=== PATIENT | male | born 1965 | race Asian ===

== ENCOUNTER 2016-12-15 19:24 | Inpatient (IN) | payer OTHER ==
[~2016-12-15] VITALS: Ht 162.6 cm; Wt 78.8 kg
[~2016-12-15 19:24] MED LIST: AMLO10TA4 PO; ASPI-1061 PO; GLIP5TAB3 PO
[2016-12-15] MEDS ORDERED: SODI650T PO (20:11)
[2016-12-15] MEDS ORDERED: HYDR25 PO (20:11)
[2016-12-15] MEDS ORDERED: DILT180C52 PO (20:11)
[2016-12-15] MEDS ORDERED: FURO20 PO (20:11)
[2016-12-15] MEDS ORDERED: LINA5TAB PO (20:11)
[2016-12-15] MEDS ORDERED: DILT180C3 PO (20:11)
[2016-12-15] MEDS ORDERED: PRAV20TA4 PO (20:13)
[2016-12-15] MEDS ORDERED: LOSA50TA37 PO (20:13)
[2016-12-15 20:16] LABS: GLUCOSE,POINT OF CARE 209 MG/DL (70-110)
[2016-12-15 20:53] LABS: ANION GAP 12 mmol/L (8-16); BASOPHILS % (AUTO) 1.7 % (0.0-2.0); CALCIUM, TOTAL 8.3 mg/dL (8.8-10.5); CARBON DIOXIDE 22 mmol/L (22-29); CHLORIDE 95 mmol/L (98-107); CREATININE 3.39 mg/dL (0.60-1.30); EOSINOPHILS % (AUTO) 0.1 % (1.0-6.0); GLOMERULAR FILTR. RATE CALC 19 mL/min (>60); HEMATOCRIT 32.8 % (41-53); HEMOGLOBIN 10.2 g/dL (13.5-17.5); LYMPHOCYTES # (AUTO) 0.9 K/uL (1.0-4.8); LYMPHOCYTES % (AUTO) 3.4 % (22.0-44.0); MEAN CORPUSCULAR HEMOGLOBIN 20.4 pg (26.0-34.0); MEAN CORPUSCULAR HGB CONC 31.1 G/dL (31.0-37.0); MEAN CORPUSCULAR VOLUME 66 fL (80-100); MONOCYTES # (AUTO) 1.6 K/uL (0.1-1.0); MONOCYTES % (AUTO) 6.3 % (2.0-9.0); NEUTROPHILS # (AUTO) 22.3 K/uL (1.8-7.7); NEUTROPHILS % (AUTO) 88.5 % (40.0-70.0); PLATELET COUNT (AUTO) 282 K/uL (150-450); RED CELL DISTRIBUTION WIDTH 15.3 % (11.5-14.5); SODIUM SERUM 129 mmol/L (136-145); UREA NITROGEN, BLOOD 64 mg/dL (7-18); WHITE BLOOD COUNT (AUTO) 25.2 K/uL (4.5-11.0)
[2016-12-15 20:59] LABS: ALANINE AMINOTRANSFERASE 32 U/L (12-78); ALBUMIN 2.1 g/dL (3.4-5.0); ASPARTATE AMINOTRANSFERASE 26 U/L (15-37); BILIRUBIN,TOTAL 0.4 mg/dL (0.1-1.0); CREATINE KINASE, TOTAL 48 U/L (39-308); TOTAL PROTEIN, SERUM 8.3 g/dL (6.4-8.2)
[2016-12-15 21:14] LABS: RBC MORPHOLOGY COMMENT ABNORMAL RBC MORPH
[2016-12-15] MEDS ORDERED: MORPHINE SULFATE 4 MG/ML SYRINGE IVP ONE (21:30)
[2016-12-15 21:40] LABS: INR 1.1 (0.9-1.1); PROTHROMBIN TIME 11.6 SEC (9.4-11.6)
[2016-12-15] MEDS ORDERED: SODIUM CHLORIDE 0.9% 1,000 ML IV ONE (22:15)
[2016-12-15] MEDS ORDERED: *CLINICAL-CEFTAROLINE DOSING CLINICAL ONE (22:15)
[2016-12-15 22:16] LABS: B-TYPE NATRIURETIC PEPTIDE 60 pg/mL (0-100)
[2016-12-15] MEDS ORDERED: CEFTAROLINE FOSAMIL 300 MG in DEXTROSE 5%-WATER 150 ML IV ONE (22:30)
[2016-12-15] MEDS ORDERED: ACETAMINOPHEN 325 MG TABLET PO PRN (23:30)
[2016-12-15] MEDS ORDERED: ONDANSETRON HCL 4 MG/2 ML VIAL IVP PRN (23:30)
[2016-12-15] MEDS ORDERED: 0.9% SODIUM CHLORIDE 10 ML SYRINGE IVP PRN (23:30)
[2016-12-16 02:07] LABS: APPEARANCE,URINE CLEAR (CLEAR); GLUCOSE, URINE (UA) 100 mg/dL (NEGATIVE); KETONES,URINE NEGATIVE (NEGATIVE); LEUKOCYTE ESTERASE ,URINE SMALL (NEGATIVE); OCCULT BLOOD,URINE NEGATIVE (NEGATIVE); PROTEIN,URINE SEE CONFIRM (NEGATIVE)
[2016-12-16 02:10] LABS: ADD UA MICROSCOPIC YES
[2016-12-16 02:55] LABS: RBC,URINE 0-2 /HPF (0-2); SQUAMOUS EPITHELIAL CELL,UR Rare /LPF (None Seen); SULFOSALICYLIC ACID,URINE 2+ (Negative)
[2016-12-16 06:27] LABS: GLUCOSE,POINT OF CARE 103 MG/DL (70-110)
[2016-12-16] MEDS ORDERED: *CLINICAL-CEFTAROLINE DOSING CLINICAL ONE (08:15)
[2016-12-16] MEDS ORDERED: ONDANSETRON HCL 4 MG/2 ML VIAL IVP PRN (08:15)
[2016-12-16] MEDS ORDERED: MAGNESIUM HYDROXIDE SUSPENSION 30 ML UDCUP PO PRN (08:15)
[2016-12-16] MEDS ORDERED: 0.9% SODIUM CHLORIDE 10 ML SYRINGE IVP PRN (08:15)
[2016-12-16] MEDS ORDERED: DILTIAZEM HCL CD 180 MG ER CAPSULE PO SCH (09:00)
[2016-12-16] MEDS ORDERED: SODIUM BICARBONATE 650 MG TABLET PO SCH (09:00)
[2016-12-16] MEDS: LOSARTAN POTASSIUM 50 MG TABLET PO SCH (09:29)
[2016-12-16] MEDS: DILTIAZEM HCL CD 180 MG ER CAPSULE PO SCH (09:29)
[2016-12-16] MEDS: AmLODIPine BESYLATE 10 MG TABLET PO SCH (09:29)
[2016-12-16] MEDS: PRAVASTATIN SODIUM 20 MG TABLET PO SCH (09:29)
[2016-12-16] MEDS: HydrALAZINE HCL 25 MG TABLET PO SCH ×2 (09:29→23:28)
[2016-12-16] MEDS: FUROSEMIDE 20 MG TABLET PO SCH (09:29)
[2016-12-16] MEDS: LinaGLIPtin 5 MG TABLET PO SCH (09:29)
[2016-12-16] MEDS: DOCUSATE SODIUM 100 MG CAPSULE PO SCH ×2 (09:29→22:23)
[2016-12-16] MEDS: ASPIRIN 81 MG EC TABLET PO SCH (09:29)
[2016-12-16] MEDS: PANTOPRAZOLE SODIUM 40 MG/VIAL IVP SCH (09:30)
[2016-12-16] MEDS ORDERED: CEFTAROLINE FOSAMIL 300 MG in DEXTROSE 5%-WATER 150 ML IV ONE (10:00)
[2016-12-16] MEDS ORDERED: ONDANSETRON HCL 4 MG/2 ML VIAL IVP ONE (12:00)
[2016-12-16] MEDS ORDERED: SUCCINYLCHOLINE CHLORIDE 20 MG/ML 10 ML VIAL IVP ONE (12:00)
[2016-12-16] MEDS ORDERED: PROPOFOL 1% 20 ML VIAL IVP ONE (12:00)
[2016-12-16] MEDS ORDERED: EPHEDrine SULFATE 50 MG/ML VIAL IM ONE (12:00)
[2016-12-16] MEDS ORDERED: MIDAZOLAM HCL 2 MG/2 ML VIAL IVP ONE (12:00)
[2016-12-16] MEDS ORDERED: FentaNYL CITRATE-PF 100 MCG/2 ML VIAL IVP ONE (12:00)
[2016-12-16] MEDS ORDERED: LIDOCAINE HCL/PF 2% 5 ML VIAL INJ ONE (12:00)
[2016-12-16] MEDS ORDERED: SODIUM CHLORIDE 0.9% 1,000 ML IV ONE ×2 (12:00→12:23)
[2016-12-16 12:19] VITALS: BP 126/67
[2016-12-16] MEDS ORDERED: HYDROGEN PEROXIDE 473 ML SOLUTION ONE (12:58)
[2016-12-16] MEDS ORDERED: HYDROmorphone 2 MG/ML SYRINGE IVP PRN (14:00)
[2016-12-16] MEDS ORDERED: FentaNYL CITRATE-PF 100 MCG/2 ML VIAL IVP PRN (14:00)
[2016-12-16] MEDS ORDERED: MEPERIDINE-PF 25 MG/ML SYRINGE IVP PRN (14:00)
[2016-12-16 15:36] VITALS: BP 114/59
[2016-12-16 16:17] VITALS: BP 114/59
[2016-12-16 20:17] VITALS: BP 120/61
[2016-12-16] MEDS: ACETAMINOPHEN 325 MG TABLET PO PRN (22:25)
[2016-12-16] MEDS: CEFTAROLINE FOSAMIL 300 MG in DEXTROSE 5%-WATER 150 ML IV SCH (23:21)
[2016-12-16 23:57] VITALS: BP 112/60
[2016-12-17 04:43] VITALS: BP 135/66
[2016-12-17 07:16] VITALS: BP 126/61
[2016-12-17 07:45] LABS: BASOPHILS # (AUTO) 0.03 K/uL (0.00-0.20); BASOPHILS % (AUTO) 0.2 % (0.0-2.0); EOSINOPHILS % (AUTO) 0.56 % (1.0-6.0); HEMATOCRIT 25.1 % (41-53); HEMOGLOBIN 8.2 g/dL (13.5-17.5); LYMPHOCYTES # (AUTO) 0.9 K/uL (1.0-4.8); LYMPHOCYTES % (AUTO) 4.9 % (22.0-44.0); MEAN CORPUSCULAR HGB CONC 32.7 G/dL (31.0-37.0); MEAN CORPUSCULAR VOLUME 64 fL (80-100); MONOCYTES # (AUTO) 1.6 K/uL (0.1-1.0); MONOCYTES % (AUTO) 8.7 % (2.0-9.0); NEUTROPHILS # (AUTO) 15.5 K/uL (1.8-7.7); PLATELET COUNT (AUTO) 258 K/uL (150-450); RED CELL DISTRIBUTION WIDTH 15.3 % (11.5-14.5); WHITE BLOOD COUNT (AUTO) 18.1 K/uL (4.5-11.0)
[2016-12-17 07:51] LABS: CALCIUM, TOTAL 7.5 mg/dL (8.8-10.5); CREATININE 3.3 mg/dL (0.60-1.30); POTASSIUM 5.2 mmol/L (3.5-5.1)
[2016-12-17 07:55] LABS: NEUTROPHILS % (AUTO) 85.6 % (40.0-70.0)
[2016-12-17 07:56] LABS: RBC MORPHOLOGY COMMENT ABNORMAL RBC MORPH
[2016-12-17] MEDS: OXYGEN THERAPY IH SCH ×2 (08:00→20:00)
[2016-12-17] MEDS: DILTIAZEM HCL CD 180 MG ER CAPSULE PO SCH (08:20)
[2016-12-17] MEDS: DOCUSATE SODIUM 100 MG CAPSULE PO SCH ×2 (08:20→20:13)
[2016-12-17] MEDS: ASPIRIN 81 MG EC TABLET PO SCH (08:20)
[2016-12-17] MEDS: PRAVASTATIN SODIUM 20 MG TABLET PO SCH (08:21)
[2016-12-17] MEDS: FUROSEMIDE 20 MG TABLET PO SCH (08:21)
[2016-12-17] MEDS: AmLODIPine BESYLATE 10 MG TABLET PO SCH (08:21)
[2016-12-17] MEDS: PANTOPRAZOLE SODIUM 40 MG/VIAL IVP SCH (08:27)
[2016-12-17] MEDS ORDERED: SODIUM CL IRRIG SOLN BOTTLE 250 ML IRRIG ONE (09:25)
[2016-12-17] MEDS: HydrALAZINE HCL 25 MG TABLET PO SCH ×2 (09:40→20:13)
[2016-12-17] MEDS: LinaGLIPtin 5 MG TABLET PO SCH (09:40)
[2016-12-17] MEDS: LOSARTAN POTASSIUM 50 MG TABLET PO SCH (09:40)
[2016-12-17] MEDS: ACETAMINOPHEN 325 MG TABLET PO PRN (09:41)
[2016-12-17] MEDS: CEFTAROLINE FOSAMIL 300 MG in DEXTROSE 5%-WATER 150 ML IV SCH ×2 (09:42→21:14)
[2016-12-17] MEDS ORDERED: GLIP10 PO (11:11)
[2016-12-17 11:15] VITALS: BP 121/62
[2016-12-17] MEDS ORDERED: DEXTROSE 50%-WATER 25 GM/50 ML SYRINGE IVP PRN (11:15)
[2016-12-17 11:57] LABS: GLUCOSE COMMENT 1 Received Meds; GLUCOSE,POINT OF CARE 232 MG/DL (70-110)
[2016-12-17] MEDS: INSULIN ASPART 100 UNITS/ML SQ PRN ×3 (12:05→20:54)
[2016-12-17 15:31] VITALS: BP 117/67
[2016-12-17] MEDS: SODIUM CHLORIDE 0.9% 1,000 ML IV SCH (15:47)
[2016-12-17] MEDS: OxyCODONE HCL/ACETAMINOPHEN 5-325 MG TABLET PO PRN ×2 (15:59→20:21)
[2016-12-17 18:36] LABS: GLUCOSE,POINT OF CARE 244 MG/DL (70-110)
[2016-12-17 18:36] LABS: GLUCOSE,POINT OF CARE 208 MG/DL (70-110)
[2016-12-17 19:17] VITALS: BP 125/58
[2016-12-18] VITALS (7 sets, daily range): BP systolic 118–150; BP diastolic 55–77
[2016-12-18] MEDS: SODIUM CHLORIDE 0.9% 1,000 ML IV SCH (05:51)
[2016-12-18] MEDS: INSULIN ASPART 100 UNITS/ML SQ PRN ×4 (06:35→20:31)
[2016-12-18 07:10] LABS: BASOPHILS % (AUTO) 0.1 % (0.0-2.0); EOSINOPHILS % (AUTO) 1.2 % (1.0-6.0); HEMATOCRIT 26.2 % (41-53); HEMOGLOBIN 8.3 g/dL (13.5-17.5); LYMPHOCYTES % (AUTO) 6.3 % (22.0-44.0); MEAN CORPUSCULAR HEMOGLOBIN 20.5 pg (26.0-34.0); MEAN CORPUSCULAR HGB CONC 31.4 G/dL (31.0-37.0); MEAN CORPUSCULAR VOLUME 65 fL (80-100); MONOCYTES # (AUTO) 1.3 K/uL (0.1-1.0); MONOCYTES % (AUTO) 8.2 % (2.0-9.0); NEUTROPHILS # (AUTO) 13.2 K/uL (1.8-7.7); NEUTROPHILS % (AUTO) 84.2 % (40.0-70.0); PLATELET COUNT (AUTO) 296 K/uL (150-450); RED BLOOD CELL COUNT(AUTO) 4.02 MIL/uL (4.50-5.90); RED CELL DISTRIBUTION WIDTH 14.8 % (11.5-14.5); WHITE BLOOD COUNT (AUTO) 15.7 K/uL (4.5-11.0)
[2016-12-18 07:31] LABS: CALCIUM, TOTAL 7.4 mg/dL (8.8-10.5); MAGNESIUM 2.4 mg/dL (1.80-2.40); PHOSPHORUS 4.4 mg/dL (2.5-4.9); POTASSIUM 5.7 mmol/L (3.5-5.1)
[2016-12-18 07:32] LABS: GLUCOSE,POINT OF CARE 148 MG/DL (70-110)
[2016-12-18] MEDS: PRAVASTATIN SODIUM 20 MG TABLET PO SCH (08:14)
[2016-12-18] MEDS: DILTIAZEM HCL CD 180 MG ER CAPSULE PO SCH (08:14)
[2016-12-18] MEDS: LinaGLIPtin 5 MG TABLET PO SCH (08:14)
[2016-12-18] MEDS: PANTOPRAZOLE SODIUM 40 MG/VIAL IVP SCH (08:14)
[2016-12-18] MEDS: ASPIRIN 81 MG EC TABLET PO SCH (08:15)
[2016-12-18] MEDS: ACETAMINOPHEN 325 MG TABLET PO PRN (08:15)
[2016-12-18] MEDS: DOCUSATE SODIUM 100 MG CAPSULE PO SCH ×2 (08:15→21:00)
[2016-12-18] MEDS: OXYGEN THERAPY IH SCH ×2 (08:15→20:00)
[2016-12-18] MEDS ORDERED: SODIUM POLYSTYRENE SULFONATE 15 GM/60 ML SUSPENSION BOTTLE PO ONE (08:30)
[2016-12-18] MEDS ORDERED: VANCOMYCIN HCL 1.25 GM in DEXTROSE 5%-WATER 250 ML IV ONE (09:00)
[2016-12-18] MEDS: HydrALAZINE HCL 25 MG TABLET PO SCH ×2 (09:00→20:28)
[2016-12-18] MEDS: OxyCODONE HCL/ACETAMINOPHEN 5-325 MG TABLET PO PRN ×2 (09:26→20:28)
[2016-12-18] MEDS: ALBUMIN HUMAN 25%-25GM/100ML 100 ML IV SCH ×2 (11:50→17:07)
[2016-12-18 12:12] LABS: GLUCOSE COMMENT 1 Received Meds; GLUCOSE,POINT OF CARE 203 MG/DL (70-110)
[2016-12-18 19:56] LABS: GLUCOSE COMMENT 1 Received Meds; GLUCOSE,POINT OF CARE 159 MG/DL (70-110)
[2016-12-18 19:57] LABS: GLUCOSE COMMENT 1 Received Meds; GLUCOSE,POINT OF CARE 283 MG/DL (70-110)
[2016-12-18 19:57] LABS: GLUCOSE COMMENT 1 Received Meds; GLUCOSE,POINT OF CARE 176 MG/DL (70-110)
[2016-12-19] MEDS: SODIUM CHLORIDE 0.9% 1,000 ML IV SCH ×2 (00:06→08:19)
[2016-12-19] MEDS: ALBUMIN HUMAN 25%-25GM/100ML 100 ML IV SCH ×5 (00:06→23:32)
[2016-12-19 04:41] VITALS: BP 147/73
[2016-12-19 07:23] LABS: BASOPHILS % (AUTO) 0.4 % (0.0-2.0); EOSINOPHILS % (AUTO) 1.1 % (1.0-6.0); HEMATOCRIT 26.3 % (41-53); HEMOGLOBIN 8.2 g/dL (13.5-17.5); LYMPHOCYTES # (AUTO) 1.1 K/uL (1.0-4.8); LYMPHOCYTES % (AUTO) 8.5 % (22.0-44.0); MEAN CORPUSCULAR HEMOGLOBIN 20.2 pg (26.0-34.0); MEAN CORPUSCULAR VOLUME 65 fL (80-100); MONOCYTES # (AUTO) 1.1 K/uL (0.1-1.0); MONOCYTES % (AUTO) 7.9 % (2.0-9.0); NEUTROPHILS % (AUTO) 82.1 % (40.0-70.0); PLATELET COUNT (AUTO) 279 K/uL (150-450); RED BLOOD CELL COUNT(AUTO) 4.05 MIL/uL (4.50-5.90); RED CELL DISTRIBUTION WIDTH 15.3 % (11.5-14.5); WHITE BLOOD COUNT (AUTO) 13.4 K/uL (4.5-11.0)
[2016-12-19 07:48] VITALS: BP 148/80
[2016-12-19 07:50] LABS: CALCIUM, TOTAL 8.1 mg/dL (8.8-10.5); CREATININE 2.54 mg/dL (0.60-1.30); MAGNESIUM 2.3 mg/dL (1.80-2.40); PHOSPHORUS 3.9 mg/dL (2.5-4.9); POTASSIUM 5.5 mmol/L (3.5-5.1)
[2016-12-19] MEDS: ASPIRIN 81 MG EC TABLET PO SCH (08:12)
[2016-12-19] MEDS ORDERED: SODIUM POLYSTYRENE SULFONATE 15 GM/60 ML SUSPENSION BOTTLE PO ONE (08:15)
[2016-12-19] MEDS: DOCUSATE SODIUM 100 MG CAPSULE PO SCH ×2 (08:18→20:54)
[2016-12-19] MEDS: PANTOPRAZOLE SODIUM 40 MG/VIAL IVP SCH (08:18)
[2016-12-19] MEDS: LinaGLIPtin 5 MG TABLET PO SCH (08:18)
[2016-12-19] MEDS: PRAVASTATIN SODIUM 20 MG TABLET PO SCH (08:18)
[2016-12-19] MEDS: DILTIAZEM HCL CD 180 MG ER CAPSULE PO SCH (08:18)
[2016-12-19] MEDS: OxyCODONE HCL/ACETAMINOPHEN 5-325 MG TABLET PO PRN ×3 (08:18→21:54)
[2016-12-19] MEDS: HydrALAZINE HCL 25 MG TABLET PO SCH ×2 (08:18→20:54)
[2016-12-19] MEDS: OXYGEN THERAPY IH SCH ×2 (08:19→17:17)
[2016-12-19] MEDS ORDERED: *CLINICAL-CEFTAROLINE DOSING CLINICAL ONE (11:15)
[2016-12-19 11:19] VITALS: BP 150/76
[2016-12-19 11:43] LABS: GLUCOSE COMMENT 1 Received Meds; GLUCOSE,POINT OF CARE 146 MG/DL (70-110)
[2016-12-19] MEDS ORDERED: VANCOMYCIN HCL 1 GM/D5% WATER 200 ML IV ONE (12:00)
[2016-12-19] MEDS: INSULIN ASPART 100 UNITS/ML SQ PRN ×3 (12:14→20:59)
[2016-12-19 16:01] VITALS: BP 152/75
[2016-12-19] MEDS: ACETAMINOPHEN 325 MG TABLET PO PRN (17:17)
[2016-12-19 19:48] VITALS: BP 148/78
[2016-12-19 23:12] VITALS: BP 153/73
[2016-12-20 04:16] VITALS: BP 128/67
[2016-12-20] MEDS: ALBUMIN HUMAN 25%-25GM/100ML 100 ML IV SCH ×3 (05:57→17:51)
[2016-12-20 06:19] LABS: BASOPHILS # (AUTO) 0.06 K/uL (0.00-0.20); BASOPHILS % (AUTO) 0.4 % (0.0-2.0); EOSINOPHILS % (AUTO) 0.75 % (1.0-6.0); HEMATOCRIT 22.4 % (41-53); HEMOGLOBIN 7.3 g/dL (13.5-17.5); LYMPHOCYTES # (AUTO) 1.3 K/uL (1.0-4.8); LYMPHOCYTES % (AUTO) 9.4 % (22.0-44.0); MEAN CORPUSCULAR HEMOGLOBIN 20.9 pg (26.0-34.0); MEAN CORPUSCULAR HGB CONC 32.8 G/dL (31.0-37.0); MEAN CORPUSCULAR VOLUME 64 fL (80-100); MONOCYTES # (AUTO) 0.9 K/uL (0.1-1.0); MONOCYTES % (AUTO) 6.5 % (2.0-9.0); NEUTROPHILS # (AUTO) 11.4 K/uL (1.8-7.7); NEUTROPHILS % (AUTO) 82.9 % (40.0-70.0); PLATELET COUNT (AUTO) 237 K/uL (150-450); RED BLOOD CELL COUNT(AUTO) 3.51 MIL/uL (4.50-5.90); RED CELL DISTRIBUTION WIDTH 15.5 % (11.5-14.5); WHITE BLOOD COUNT (AUTO) 13.8 K/uL (4.5-11.0)
[2016-12-20 07:05] LABS: ALBUMIN 2.9 g/dL (3.4-5.0); BILIRUBIN,TOTAL 0.3 mg/dL (0.1-1.0); CALCIUM, TOTAL 8.1 mg/dL (8.8-10.5); CREATININE 2.37 mg/dL (0.60-1.30); MAGNESIUM 2.2 mg/dL (1.80-2.40); PHOSPHORUS 3.4 mg/dL (2.5-4.9); POTASSIUM 5.1 mmol/L (3.5-5.1); TOTAL PROTEIN, SERUM 7.2 g/dL (6.4-8.2)
[2016-12-20 07:09] LABS: RBC MORPHOLOGY COMMENT ABNORMAL RBC MORPH
[2016-12-20 07:40] VITALS: BP 149/78
[2016-12-20] MEDS: PRAVASTATIN SODIUM 20 MG TABLET PO SCH (08:13)
[2016-12-20] MEDS: LinaGLIPtin 5 MG TABLET PO SCH (08:13)
[2016-12-20] MEDS: DILTIAZEM HCL CD 180 MG ER CAPSULE PO SCH (08:13)
[2016-12-20] MEDS: VANCOMYCIN HCL 1 GM/D5% WATER 200 ML IV SCH (08:13)
[2016-12-20] MEDS: PANTOPRAZOLE SODIUM 40 MG/VIAL IVP SCH (08:13)
[2016-12-20] MEDS: EPOETIN ALFA 10,000 UNITS/ML VIAL SQ SCH (08:13)
[2016-12-20] MEDS: HydrALAZINE HCL 25 MG TABLET PO SCH ×2 (08:13→20:53)
[2016-12-20] MEDS: DOCUSATE SODIUM 100 MG CAPSULE PO SCH ×2 (08:14→20:53)
[2016-12-20] MEDS: ASPIRIN 81 MG EC TABLET PO SCH (08:14)
[2016-12-20] MEDS: OxyCODONE HCL/ACETAMINOPHEN 5-325 MG TABLET PO PRN (10:44)
[2016-12-20] MEDS: SODIUM CHLORIDE 0.9% 1,000 ML IV SCH (10:49)
[2016-12-20] MEDS: INSULIN ASPART 100 UNITS/ML SQ PRN ×3 (11:36→21:01)
[2016-12-20 11:41] VITALS: BP 160/78
[2016-12-20] MEDS ORDERED: SODIUM CL IRRIG SOLN BOTTLE 250 ML IRRIG ONE (11:47)
[2016-12-20 15:34] VITALS: BP 163/79
[2016-12-20] MEDS: OXYGEN THERAPY IH SCH ×2 (17:51→20:54)
[2016-12-20 18:07] LABS: GLUCOSE COMMENT 1 Received Meds; GLUCOSE,POINT OF CARE 160 MG/DL (70-110)
[2016-12-20 18:08] LABS: GLUCOSE COMMENT 1 Received Meds; GLUCOSE,POINT OF CARE 209 MG/DL (70-110)
[2016-12-20 18:08] LABS: GLUCOSE COMMENT 1 Received Meds; GLUCOSE,POINT OF CARE 155 MG/DL (70-110)
[2016-12-20 18:08] LABS: GLUCOSE COMMENT 1 Received Meds; GLUCOSE,POINT OF CARE 213 MG/DL (70-110)
[2016-12-20 18:12] LABS: GLUCOSE,POINT OF CARE 108 MG/DL (70-110)
[2016-12-20 18:12] LABS: GLUCOSE COMMENT 1 Received Meds; GLUCOSE,POINT OF CARE 233 MG/DL (70-110)
[2016-12-20 19:36] VITALS: BP 142/64
[2016-12-20 23:07] LABS: GLUCOSE COMMENT 1 Received Meds; GLUCOSE,POINT OF CARE 161 MG/DL (70-110)
[2016-12-20 23:34] VITALS: BP 152/71
[2016-12-21] VITALS (17 sets, daily range): BP systolic 137–160; BP diastolic 66–90
[2016-12-21] MEDS: ALBUMIN HUMAN 25%-25GM/100ML 100 ML IV SCH ×2 (00:17→06:01)
[2016-12-21] MEDS: SODIUM CHLORIDE 0.9% 1,000 ML IV SCH ×2 (06:01→10:10)
[2016-12-21] MEDS: INSULIN ASPART 100 UNITS/ML SQ PRN ×4 (06:07→21:16)
[2016-12-21 06:57] LABS: BASOPHILS % (AUTO) 0.1 % (0.0-2.0); EOSINOPHILS % (AUTO) 0.4 % (1.0-6.0); HEMATOCRIT 22.9 % (41-53); HEMOGLOBIN 7.2 g/dL (13.5-17.5); LYMPHOCYTES # (AUTO) 1.2 K/uL (1.0-4.8); LYMPHOCYTES % (AUTO) 6.9 % (22.0-44.0); MEAN CORPUSCULAR HGB CONC 31.7 G/dL (31.0-37.0); MEAN CORPUSCULAR VOLUME 66 fL (80-100); MONOCYTES # (AUTO) 0.9 K/uL (0.1-1.0); MONOCYTES % (AUTO) 5.4 % (2.0-9.0); NEUTROPHILS # (AUTO) 14.8 K/uL (1.8-7.7); PLATELET COUNT (AUTO) 227 K/uL (150-450); RED BLOOD CELL COUNT(AUTO) 3.45 MIL/uL (4.50-5.90); RED CELL DISTRIBUTION WIDTH 15.2 % (11.5-14.5)
[2016-12-21 07:02] LABS: NEUTROPHILS % (AUTO) 87.2 % (40.0-70.0)
[2016-12-21 07:21] LABS: CALCIUM, TOTAL 7.9 mg/dL (8.8-10.5); CREATININE 2.99 mg/dL (0.60-1.30); MAGNESIUM 2.3 mg/dL (1.80-2.40); PHOSPHORUS 3.3 mg/dL (2.5-4.9); POTASSIUM 5.5 mmol/L (3.5-5.1)
[2016-12-21] MEDS ORDERED: ALBUTEROL SULFATE 2.5 MG/0.5 ML NEB SOLUTION NEB PRN (09:00)
[2016-12-21] MEDS ORDERED: IPRATROPIUM BROMIDE 0.5 MG/2.5 ML NEB SOLUTION NEB PRN (09:00)
[2016-12-21 09:25] LABS: ABG A-A DIFF O2 165.3 mmHg (10-20.0); ABG BASE EXCESS -9.1 mmol/L (-2.0-3.0); ABG HCO3 17.5 mmol/L (22.0-26.0); ABG OXYHEMOGLOBIN 83.1 % (94.0-100.0); ABG PCO2 30 mmHg (35-45); ABG PH 7.357 (7.35-7.450); TEMPERATURE, FAHRENHEIT, BG 98.6 FAHREN (96.0-98.6)
[2016-12-21 09:26] LABS: ALLEN TEST, BLOOD GAS POSITIVE
[2016-12-21] MEDS: OXYGEN THERAPY IH SCH ×2 (10:09→20:29)
[2016-12-21] MEDS: PRAVASTATIN SODIUM 20 MG TABLET PO SCH (10:10)
[2016-12-21] MEDS: LinaGLIPtin 5 MG TABLET PO SCH (10:10)
[2016-12-21] MEDS: DOCUSATE SODIUM 100 MG CAPSULE PO SCH ×2 (10:10→20:29)
[2016-12-21] MEDS: DILTIAZEM HCL CD 180 MG ER CAPSULE PO SCH (10:10)
[2016-12-21] MEDS: PANTOPRAZOLE SODIUM 40 MG/VIAL IVP SCH (10:10)
[2016-12-21] MEDS: HydrALAZINE HCL 25 MG TABLET PO SCH ×2 (10:10→20:29)
[2016-12-21] MEDS: ASPIRIN 81 MG EC TABLET PO SCH (10:10)
[2016-12-21] MEDS: VANCOMYCIN HCL 1 GM/D5% WATER 200 ML IV SCH (10:10)
[2016-12-21 12:25] LABS: RBC MORPHOLOGY COMMENT ABNORMAL RBC MORPH
[2016-12-21] MEDS ORDERED: SODIUM CHLORIDE 0.9% 500 ML IV ONE (17:04)
[2016-12-21] MEDS ORDERED: SODIUM POLYSTYRENE SULFONATE 15 GM/60 ML SUSPENSION BOTTLE PO ONE (22:30)
[2016-12-22] VITALS (7 sets, daily range): BP systolic 119–162; BP diastolic 59–86
[2016-12-22] MEDS: ACETAMINOPHEN 325 MG TABLET PO PRN ×2 (04:41→08:56)
[2016-12-22 05:42] LABS: GLUCOSE COMMENT 1 Received Meds; GLUCOSE,POINT OF CARE 178 MG/DL (70-110)
[2016-12-22] MEDS: INSULIN ASPART 100 UNITS/ML SQ PRN ×4 (05:42→21:36)
[2016-12-22 07:21] LABS: BASOPHILS # (AUTO) 0.02 K/uL (0.00-0.20); BASOPHILS % (AUTO) 0.1 % (0.0-2.0); EOSINOPHILS # (AUTO) 0.09 K/uL (0.00-0.70); EOSINOPHILS % (AUTO) 0.57 % (1.0-6.0); HEMATOCRIT 26.7 % (41-53); HEMOGLOBIN 8.8 g/dL (13.5-17.5); LYMPHOCYTES # (AUTO) 0.9 K/uL (1.0-4.8); LYMPHOCYTES % (AUTO) 5.5 % (22.0-44.0); MEAN CORPUSCULAR HEMOGLOBIN 22.6 pg (26.0-34.0); MEAN CORPUSCULAR HGB CONC 33.1 G/dL (31.0-37.0); MEAN CORPUSCULAR VOLUME 68 fL (80-100); MONOCYTES # (AUTO) 0.9 K/uL (0.1-1.0); MONOCYTES % (AUTO) 5.5 % (2.0-9.0); NEUTROPHILS # (AUTO) 14.4 K/uL (1.8-7.7); PLATELET COUNT (AUTO) 239 K/uL (150-450); RED BLOOD CELL COUNT(AUTO) 3.91 MIL/uL (4.50-5.90); RED CELL DISTRIBUTION WIDTH 21.3 % (11.5-14.5); WHITE BLOOD COUNT (AUTO) 16.3 K/uL (4.5-11.0)
[2016-12-22 07:52] LABS: NEUTROPHILS % (AUTO) 88.3 % (40.0-70.0)
[2016-12-22 07:53] LABS: RBC MORPHOLOGY COMMENT ABNORMAL RBC MORPH
[2016-12-22 08:11] LABS: CREATININE 2.92 mg/dL (0.60-1.30); MAGNESIUM 2.3 mg/dL (1.80-2.40); PHOSPHORUS 3.2 mg/dL (2.5-4.9); POTASSIUM 4.9 mmol/L (3.5-5.1)
[2016-12-22] MEDS: DOCUSATE SODIUM 100 MG CAPSULE PO SCH ×2 (08:56→21:00)
[2016-12-22] MEDS: ASPIRIN 81 MG EC TABLET PO SCH (08:56)
[2016-12-22] MEDS: HydrALAZINE HCL 25 MG TABLET PO SCH ×2 (08:56→21:00)
[2016-12-22] MEDS: PANTOPRAZOLE SODIUM 40 MG/VIAL IVP SCH (08:56)
[2016-12-22] MEDS: PRAVASTATIN SODIUM 20 MG TABLET PO SCH (08:56)
[2016-12-22] MEDS: LinaGLIPtin 5 MG TABLET PO SCH (08:56)
[2016-12-22] MEDS: DILTIAZEM HCL CD 180 MG ER CAPSULE PO SCH (08:56)
[2016-12-22] MEDS: VANCOMYCIN HCL 1 GM/D5% WATER 200 ML IV SCH (08:57)
[2016-12-22] MEDS: EPOETIN ALFA 10,000 UNITS/ML VIAL SQ SCH (08:57)
[2016-12-22] MEDS ORDERED: SODIUM CHLORIDE 0.9% 500 ML IV ONE (09:00)
[2016-12-22] MEDS: OXYGEN THERAPY IH SCH ×2 (09:02→21:01)
[2016-12-22] MEDS ORDERED: FUROSEMIDE 40 MG/4 ML VIAL IVP ONE ×2 (12:15→14:45)
[2016-12-22] MEDS: CefTRIAXone 1 GM/DEXTROSE 50 ML IV SCH (16:42)
[2016-12-23 04:19] VITALS: BP 144/74
[2016-12-23] MEDS: INSULIN ASPART 100 UNITS/ML SQ PRN (06:00)
[2016-12-23 07:17] VITALS: BP 172/90
[2016-12-23 07:45] LABS: BASOPHILS % (AUTO) 0.4 % (0.0-2.0); EOSINOPHILS % (AUTO) 0.8 % (1.0-6.0); HEMATOCRIT 31.3 % (41-53); LYMPHOCYTES # (AUTO) 0.9 K/uL (1.0-4.8); LYMPHOCYTES % (AUTO) 6.2 % (22.0-44.0); MEAN CORPUSCULAR HEMOGLOBIN 22.1 pg (26.0-34.0); MEAN CORPUSCULAR HGB CONC 31.8 G/dL (31.0-37.0); MEAN CORPUSCULAR VOLUME 69 fL (80-100); MONOCYTES # (AUTO) 0.8 K/uL (0.1-1.0); MONOCYTES % (AUTO) 5.4 % (2.0-9.0); NEUTROPHILS # (AUTO) 13.2 K/uL (1.8-7.7); PLATELET COUNT (AUTO) 241 K/uL (150-450); RED CELL DISTRIBUTION WIDTH 21.2 % (11.5-14.5); WHITE BLOOD COUNT (AUTO) 15.1 K/uL (4.5-11.0)
[2016-12-23] MEDS ORDERED: VANCOMYCIN HCL 750 MG in DEXTROSE 5%-WATER 150 ML IV SCH (08:00)
[2016-12-23] MEDS: DILTIAZEM HCL CD 180 MG ER CAPSULE PO SCH (08:08)
[2016-12-23] MEDS: PANTOPRAZOLE SODIUM 40 MG/VIAL IVP SCH (08:08)
[2016-12-23] MEDS: DOCUSATE SODIUM 100 MG CAPSULE PO SCH (08:09)
[2016-12-23] MEDS: PRAVASTATIN SODIUM 20 MG TABLET PO SCH (08:09)
[2016-12-23] MEDS: LinaGLIPtin 5 MG TABLET PO SCH (08:09)
[2016-12-23] MEDS: ASPIRIN 81 MG EC TABLET PO SCH (08:09)
[2016-12-23] MEDS: HydrALAZINE HCL 25 MG TABLET PO SCH (08:10)
[2016-12-23] MEDS: OXYGEN THERAPY IH SCH (08:10)
[2016-12-23 08:14] LABS: NEUTROPHILS % (AUTO) 87.2 % (40.0-70.0)
[2016-12-23 08:15] LABS: CALCIUM, TOTAL 8.4 mg/dL (8.8-10.5); CREATININE 2.76 mg/dL (0.60-1.30); MAGNESIUM 2.2 mg/dL (1.80-2.40); PHOSPHORUS 3.7 mg/dL (2.5-4.9); POTASSIUM 4.4 mmol/L (3.5-5.1)
[2016-12-23 11:00] VITALS: BP 174/89
[2016-12-23] MEDS ORDERED: CloNIDine HCL 0.1 MG TABLET PO ONE (12:00)
[2016-12-23 12:03] LABS: GLUCOSE COMMENT 1 Received Meds; GLUCOSE,POINT OF CARE 180 MG/DL (70-110)
[2016-12-23 12:03] LABS: GLUCOSE COMMENT 1 Received Meds; GLUCOSE,POINT OF CARE 178 MG/DL (70-110)
[2016-12-23 12:49] VITALS: BP 157/79
[2016-12-23] MEDS: CefTRIAXone 1 GM/DEXTROSE 50 ML IV SCH (15:15)
[2016-12-24 19:41] LABS: GLUCOSE COMMENT 1 Received Meds; GLUCOSE,POINT OF CARE 201 MG/DL (70-110)
[2016-12-24 19:41] LABS: GLUCOSE COMMENT 1 Received Meds; GLUCOSE,POINT OF CARE 159 MG/DL (70-110)
[2016-12-24 19:47] LABS: GLUCOSE COMMENT 1 Received Meds; GLUCOSE,POINT OF CARE 164 MG/DL (70-110)
[2016-12-24 19:47] LABS: GLUCOSE COMMENT 1 Received Meds; GLUCOSE,POINT OF CARE 147 MG/DL (70-110)
[2016-12-24 19:47] LABS: GLUCOSE,POINT OF CARE 223 MG/DL (70-110)
[2016-12-25 12:28] LABS: ORGANISM ID Not indicated.
[2016-12-27 17:37] LABS: GLUCOSE,POINT OF CARE 180 MG/DL (70-110)
[2016-12-27 17:37] LABS: GLUCOSE,POINT OF CARE 153 MG/DL (70-110)
== END 2016-12-23 15:15 | DRG 710 ==
LOC: EMS 19:28 → AHU 12-16 10:12 → 5S 12-16 18:50
PROVIDERS: ADMIT Internal Medicine; ATTEND Internal Medicine
PROC: 0Q9 Lower Bones, Drainage (ICD-10-PCS; 2016-12-16)
PROC: 0Q9G0ZZ Drainage of Right Tibia, Open Approach (ICD-10-PCS; 2016-12-16)
PROC: 30233N1 Transfusion of Nonautologous Red Blood Cells into Peripheral Vein, Percutaneous Approach (ICD-10-PCS; principal; 2016-12-21)
DX: A41.02 Sepsis due to Methicillin resistant Staphylococcus aureus (principal); E43 Unspecified severe protein-calorie malnutrition; N17.9 Acute kidney failure, unspecified; E87.3 Alkalosis; J18.9 Pneumonia, unspecified organism; I13.0 Hypertensive heart and chronic kidney disease with heart failure and stage 1 through stage 4 chronic kidney disease, or unspecified chronic kidney disease; E87.5 Hyperkalemia; L02.415 Cutaneous abscess of right lower limb; I50.32 Chronic diastolic (congestive) heart failure; E11.21 Type 2 diabetes mellitus with diabetic nephropathy; A41.2 Sepsis due to unspecified staphylococcus; D56.3 Thalassemia minor; E11.319 Type 2 diabetes mellitus with unspecified diabetic retinopathy without macular edema; E11.22 Type 2 diabetes mellitus with diabetic chronic kidney disease; L03.115 Cellulitis of right lower limb; B95.62 Methicillin resistant Staphylococcus aureus infection as the cause of diseases classified elsewhere; D64.9 Anemia, unspecified; E78.00 Pure hypercholesterolemia, unspecified; R09.02 Hypoxemia; E78.5 Hyperlipidemia, unspecified; N18.9 Chronic kidney disease, unspecified; Z87.891 Personal history of nicotine dependence; Z79.84 Long term (current) use of oral hypoglycemic drugs; Z79.82 Long term (current) use of aspirin; Z79.899 Other long term (current) drug therapy; Z83.3 Family history of diabetes mellitus; Z82.49 Family history of ischemic heart disease and other diseases of the circulatory system; Z80.1 Family history of malignant neoplasm of trachea, bronchus and lung
CPT/HCPCS: 76770; 82570; 82728; 82805; 82962; 83540; 83550; 83735; 84100; 84156; 84300; 84540; 86850; 86900; 86901; 86920; 87040; 87070; 87147; 87205; 87449; 87899; 89050; 93005; 93306; 93971; 96365; 96366; 96375; 97116; 97161; 97166; 97530; 97535; 99285; C9113; J0330; J0690; J0696; J0712; J0885; J1940; J2250; J2270; J2405; J2704; J3010; J3370; J3490; J7030; J7040; J7060; P9016; P9046

== ENCOUNTER 2017-08-05 16:40 | Inpatient (IN) | payer OTHER ==
[~2017-08-05] VITALS: Ht 172.7 cm; Wt 73.0 kg
[2017-08-05] VITALS (8 sets, daily range): BP systolic 148–176; BP diastolic 78–94
[~2017-08-05 16:40] MED LIST changes: -AMLO10TA4 PO; -ASPI-1061 PO; +ASPI81TA33 PO; +DILT180C3 PO; +FURO20 PO; +GLIP10 PO; -GLIP5TAB3 PO; +HYDR25TA84 PO; +LINA5TAB PO; +SODI650T PO; +VITAD1000 PO
[2017-08-05 17:02] LABS: GLUCOSE, URINE (UA) NEGATIVE (NEGATIVE); KETONES,URINE NEGATIVE (NEGATIVE); LEUKOCYTE ESTERASE ,URINE NEGATIVE (NEGATIVE); OCCULT BLOOD,URINE LARGE (NEGATIVE); PROTEIN,URINE SEE CONFIRM (NEGATIVE)
[2017-08-05 17:05] LABS: BASOPHILS % (AUTO) 0.6 % (0.0-2.0); HEMATOCRIT 24.5 % (41-53); HEMOGLOBIN 7.7 g/dL (13.5-17.5); LYMPHOCYTES # (AUTO) 1.2 K/uL (1.0-4.8); LYMPHOCYTES % (AUTO) 13.5 % (22.0-44.0); MEAN CORPUSCULAR HEMOGLOBIN 21.3 pg (26.0-34.0); MEAN CORPUSCULAR HGB CONC 31.5 G/dL (31.0-37.0); MEAN CORPUSCULAR VOLUME 68 fL (80-100); MONOCYTES # (AUTO) 0.7 K/uL (0.1-1.0); MONOCYTES % (AUTO) 8.5 % (2.0-9.0); NEUTROPHILS # (AUTO) 6.2 K/uL (1.8-7.7); NEUTROPHILS % (AUTO) 70.4 % (40.0-70.0); PLATELET COUNT (AUTO) 147 K/uL (150-450); RED BLOOD CELL COUNT(AUTO) 3.63 MIL/uL (4.50-5.90); RED CELL DISTRIBUTION WIDTH 17.4 % (11.5-14.5); WHITE BLOOD COUNT (AUTO) 8.8 K/uL (4.5-11.0)
[2017-08-05 17:07] LABS: GLUCOSE,POINT OF CARE 116 MG/DL (70-110)
[2017-08-05 17:19] LABS: ADD UA MICROSCOPIC YES
[2017-08-05 17:20] LABS: APPEARANCE,URINE HAZY (CLEAR); SULFOSALICYLIC ACID,URINE 3+ (Negative)
[2017-08-05 17:21] LABS: WBC,URINE 0-2 /HPF (0-5)
[2017-08-05 17:22] LABS: SQUAMOUS EPITHELIAL CELL,UR Rare /LPF (None Seen)
[2017-08-05 17:28] LABS: PROTHROMBIN TIME 10.6 SEC (9.4-11.6)
[2017-08-05 17:51] LABS: CALCIUM, TOTAL 8.5 mg/dL (8.8-10.5); CREATININE 3.62 mg/dL (0.60-1.30); POTASSIUM 5.3 mmol/L (3.5-5.1)
[2017-08-05 17:57] LABS: ALBUMIN 3.3 g/dL (3.4-5.0); BILIRUBIN,TOTAL 0.2 mg/dL (0.1-1.0); TOTAL PROTEIN, SERUM 7.1 g/dL (6.4-8.2)
[2017-08-05] MEDS ORDERED: HydrALAZINE HCL 25 MG TABLET PO ONE (18:30)
[2017-08-05] MEDS ORDERED: SODIUM CHLORIDE 0.9% 500 ML IV ONE (18:30)
[2017-08-05 18:45] LABS: RBC MORPHOLOGY COMMENT ABNORMAL RBC MORPH
[2017-08-05] MEDS ORDERED: ACETAMINOPHEN 325 MG TABLET PO PRN ×2 (18:45→21:45)
[2017-08-05] MEDS ORDERED: ONDANSETRON HCL 4 MG/2 ML VIAL IVP PRN ×2 (18:45→21:45)
[2017-08-05] MEDS ORDERED: 0.9% SODIUM CHLORIDE 10 ML SYRINGE IVP PRN (18:45)
[2017-08-05] MEDS ORDERED: HYDROCODONE/ACETAMINOPHEN 5-325 MG TABLET PO PRN (21:45)
[2017-08-05] MEDS ORDERED: ZOLPIDEM TARTRATE 5 MG TABLET PO PRN (21:45)
[2017-08-05] MEDS ORDERED: BISACODYL 10 MG RECTAL RECTAL SUPPOSITORY PR PRN (21:45)
[2017-08-05] MEDS ORDERED: MORPHINE SULFATE 2 MG/ML SYRINGE IVP PRN (21:45)
[2017-08-05] MEDS ORDERED: MAGNESIUM HYDROXIDE SUSPENSION 30 ML UDCUP PO PRN (21:45)
[2017-08-06] MEDS: HEPARIN SODIUM,PORCINE 5,000 UNITS/ML VIAL SQ SCH ×2 (00:24→08:23)
[2017-08-06] MEDS ORDERED: INFLUENZA VIRUS VACCINE QVS 2017-18 (3YR+)/PF 60 MCG/0.5 ML SYRINGE IM ONE (01:30)
[2017-08-06 01:49] LABS: HEMATOCRIT 26.6 % (41-53); HEMOGLOBIN 8.5 g/dL (13.5-17.5)
[2017-08-06 05:32] VITALS: BP 166/90
[2017-08-06] MEDS ORDERED: GlipiZIDE 10 MG TABLET PO SCH (06:30)
[2017-08-06 06:49] LABS: PROTHROMBIN TIME 10.7 SEC (9.4-11.6)
[2017-08-06 06:54] LABS: BASOPHILS % (AUTO) 0.7 % (0.0-2.0); EOSINOPHILS % (AUTO) 9.3 % (1.0-6.0); HEMATOCRIT 27.9 % (41-53); MEAN CORPUSCULAR HEMOGLOBIN 22.5 pg (26.0-34.0); MEAN CORPUSCULAR HGB CONC 32.3 G/dL (31.0-37.0); MEAN CORPUSCULAR VOLUME 70 fL (80-100); MONOCYTES # (AUTO) 0.6 K/uL (0.1-1.0); NEUTROPHILS # (AUTO) 5.6 K/uL (1.8-7.7); PLATELET COUNT (AUTO) 142 K/uL (150-450); RED CELL DISTRIBUTION WIDTH 18.1 % (11.5-14.5)
[2017-08-06 07:06] LABS: ALBUMIN 3.3 g/dL (3.4-5.0); BILIRUBIN,TOTAL 0.4 mg/dL (0.1-1.0); CALCIUM, TOTAL 8.6 mg/dL (8.8-10.5); CREATININE 3.28 mg/dL (0.60-1.30); POTASSIUM 5.2 mmol/L (3.5-5.1); TOTAL PROTEIN, SERUM 6.8 g/dL (6.4-8.2)
[2017-08-06 07:33] VITALS: BP 165/94
[2017-08-06] MEDS ORDERED: PNEUMOCOCCAL VACCINE POLYVALENT 0.5 ML VIAL [PPSV23] IM ONE (08:00)
[2017-08-06] MEDS: DILTIAZEM HCL CD 180 MG ER CAPSULE PO SCH (08:22)
[2017-08-06] MEDS: DOCUSATE SODIUM 100 MG CAPSULE PO SCH ×2 (08:22→20:37)
[2017-08-06] MEDS: HydrALAZINE HCL 25 MG TABLET PO SCH ×2 (08:22→20:37)
[2017-08-06] MEDS: ASPIRIN 81 MG EC TABLET PO SCH (08:22)
[2017-08-06] MEDS: PANTOPRAZOLE SODIUM 40 MG DR TABLET PO SCH (08:22)
[2017-08-06] MEDS: FUROSEMIDE 20 MG TABLET PO SCH (08:22)
[2017-08-06] MEDS: SODIUM BICARBONATE 650 MG TABLET PO SCH ×2 (08:26→20:37)
[2017-08-06] MEDS: CHOLECALCIFEROL (VIT D3) 2,000 UNITS TABLET PO SCH (08:26)
[2017-08-06] MEDS ORDERED: LinaGLIPtin 5 MG TABLET PO SCH (09:00)
[2017-08-06 11:01] LABS: RBC MORPHOLOGY COMMENT ABNORMAL RBC MORPH
[2017-08-06] MEDS: FERROUS SULFATE 325 MG EC TABLET PO SCH ×3 (11:08→20:37)
[2017-08-06 11:10] VITALS: BP 111/65
[2017-08-06 15:52] VITALS: BP 120/72
[2017-08-06 19:26] VITALS: BP 144/78
[2017-08-07 00:07] VITALS: BP 149/76
[2017-08-07 03:59] VITALS: BP 138/72
[2017-08-07 06:20] LABS: BASOPHILS # (AUTO) 0.03 K/uL (0.00-0.20); BASOPHILS % (AUTO) 0.4 % (0.0-2.0); EOSINOPHILS # (AUTO) 0.78 K/uL (0.00-0.70); EOSINOPHILS % (AUTO) 8.74 % (1.0-6.0); HEMATOCRIT 26.8 % (41-53); HEMOGLOBIN 8.7 g/dL (13.5-17.5); LYMPHOCYTES # (AUTO) 1.1 K/uL (1.0-4.8); LYMPHOCYTES % (AUTO) 11.7 % (22.0-44.0); MEAN CORPUSCULAR HEMOGLOBIN 22.5 pg (26.0-34.0); MEAN CORPUSCULAR HGB CONC 32.5 G/dL (31.0-37.0); MEAN CORPUSCULAR VOLUME 69 fL (80-100); MONOCYTES # (AUTO) 0.8 K/uL (0.1-1.0); MONOCYTES % (AUTO) 8.9 % (2.0-9.0); NEUTROPHILS # (AUTO) 6.3 K/uL (1.8-7.7); NEUTROPHILS % (AUTO) 70.3 % (40.0-70.0); PLATELET COUNT (AUTO) 125 K/uL (150-450); RED BLOOD CELL COUNT(AUTO) 3.88 MIL/uL (4.50-5.90); RED CELL DISTRIBUTION WIDTH 18.2 % (11.5-14.5)
[2017-08-07 06:28] LABS: CALCIUM, TOTAL 8.3 mg/dL (8.8-10.5); CREATININE 3.39 mg/dL (0.60-1.30); POTASSIUM 4.9 mmol/L (3.5-5.1)
[2017-08-07 07:03] VITALS: BP 155/83
[2017-08-07] MEDS: HydrALAZINE HCL 25 MG TABLET PO SCH (08:03)
[2017-08-07] MEDS: ASPIRIN 81 MG EC TABLET PO SCH (08:03)
[2017-08-07] MEDS: FUROSEMIDE 20 MG TABLET PO SCH (08:04)
[2017-08-07] MEDS: DILTIAZEM HCL CD 180 MG ER CAPSULE PO SCH (08:04)
[2017-08-07] MEDS: CHOLECALCIFEROL (VIT D3) 2,000 UNITS TABLET PO SCH (08:04)
[2017-08-07] MEDS: DOCUSATE SODIUM 100 MG CAPSULE PO SCH (08:04)
[2017-08-07] MEDS: PANTOPRAZOLE SODIUM 40 MG DR TABLET PO SCH (08:04)
[2017-08-07] MEDS: FERROUS SULFATE 325 MG EC TABLET PO SCH ×2 (08:04→12:39)
[2017-08-07] MEDS: SODIUM BICARBONATE 650 MG TABLET PO SCH (08:04)
[2017-08-07 11:24] VITALS: BP 160/81
[2017-08-07 15:03] LABS: GLUCOSE,POINT OF CARE 170 MG/DL (70-110)
== END 2017-08-07 13:37 | disposition home or self-care (01) | DRG 813 ==
LOC: EMS 16:41 → 5S 18:41
PROVIDERS: ADMIT Internal Medicine; ATTEND Internal Medicine
PROC: 30233N1 Transfusion of Nonautologous Red Blood Cells into Peripheral Vein, Percutaneous Approach (ICD-10-PCS; principal; 2017-08-06)
DX: N99.840 Postprocedural hematoma of a genitourinary system organ or structure following a genitourinary system procedure (principal); I13.0 Hypertensive heart and chronic kidney disease with heart failure and stage 1 through stage 4 chronic kidney disease, or unspecified chronic kidney disease; N18.4 Chronic kidney disease, stage 4 (severe); I95.9 Hypotension, unspecified; I50.9 Heart failure, unspecified; E87.5 Hyperkalemia; E11.22 Type 2 diabetes mellitus with diabetic chronic kidney disease; D50.9 Iron deficiency anemia, unspecified; Y83.8 Other surgical procedures as the cause of abnormal reaction of the patient, or of later complication, without mention of misadventure at the time of the procedure; Y92.234 Operating room of hospital as the place of occurrence of the external cause; Z79.899 Other long term (current) drug therapy; Z79.84 Long term (current) use of oral hypoglycemic drugs; Z79.82 Long term (current) use of aspirin; Y93.89 Activity, other specified; Y92.89 Other specified places as the place of occurrence of the external cause
CPT/HCPCS: 36430; 82962; 85014; 85018; 86850; 86900; 86901; 86920; 90471; 93005; 96361; 99285; J1644; J7040; P9016

== ENCOUNTER 2018-08-22 19:47 | Inpatient (IN) | payer OTHER ==
[~2018-08-22] VITALS: Ht 167.6 cm; Wt 65.9 kg
[~2018-08-22 19:47] MED LIST changes: +AMLO-512 PO; -ASPI81TA33 PO; +ATOR10TA84 PO; -DILT180C3 PO; +DILT240C93 PO; +DIPH25CA85 PO; +ERYT-122 PO; -GLIP10 PO; +HYDR-2924 PO; -HYDR25TA84 PO; -LINA5TAB PO; +LOSA25TA16 PO; +METO5TAB95 PO; +OMEP20 PO; +ONDA4SOL2 PO; +SEVE0.8P6 PO; -SODI650T PO; +TERA1 PO
[2018-08-22 20:03] LABS: GLUCOSE,POINT OF CARE 137 MG/DL (70-110)
[2018-08-22] MEDS ORDERED: ONDANSETRON HCL 4 MG/2 ML VIAL IVP ONE (21:00)
[2018-08-22] MEDS ORDERED: SODIUM CHLORIDE 0.9% 1,000 ML IV ONE (21:00)
[2018-08-22 21:30] LABS: BASOPHILS % (AUTO) 1.2 % (0.0-2.0); EOSINOPHILS % (AUTO) 0.5 % (1.0-6.0); HEMOGLOBIN 10.3 g/dL (13.5-17.5); LYMPHOCYTES % (AUTO) 13.3 % (22.0-44.0); MEAN CORPUSCULAR HEMOGLOBIN 21.4 pg (26.0-34.0); MEAN CORPUSCULAR HGB CONC 31.2 G/dL (31.0-37.0); MEAN CORPUSCULAR VOLUME 69 fL (80-100); MONOCYTES # (AUTO) 0.7 K/uL (0.1-1.0); MONOCYTES % (AUTO) 8.6 % (2.0-9.0); NEUTROPHILS # (AUTO) 5.9 K/uL (1.8-7.7); NEUTROPHILS % (AUTO) 76.4 % (40.0-70.0); PLATELET COUNT (AUTO) 248 K/uL (150-450); RED BLOOD CELL COUNT(AUTO) 4.79 MIL/uL (4.50-5.90); RED CELL DISTRIBUTION WIDTH 18.8 % (11.5-14.5)
[2018-08-22 21:33] LABS: CALCIUM, TOTAL 9.3 mg/dL (8.8-10.5); CREATININE 8.35 mg/dL (0.60-1.30); POTASSIUM 3.7 mmol/L (3.5-5.1)
[2018-08-22 21:38] LABS: ALBUMIN 3.5 g/dL (3.4-5.0); BILIRUBIN,TOTAL 0.6 mg/dL (0.1-1.0); TOTAL PROTEIN, SERUM 8.5 g/dL (6.4-8.2)
[2018-08-22 22:03] LABS: LACTIC ACID 2.5 mmol/L (0.4-2.0)
[2018-08-22 22:26] LABS: PLATELET MORPHOLOGY COMMENT LARGE PLTS PRESENT
[2018-08-22] MEDS ORDERED: FOLI0.8T2 PO (22:28)
[2018-08-22] MEDS ORDERED: SIMV10TA6 PO (22:28)
[2018-08-22] MEDS ORDERED: METOCLOPRAMIDE HCL 5 MG/ML 2 ML VIAL IVP ONE (22:45)
[2018-08-23 00:05] VITALS: BP 145/63
[2018-08-23 04:00] VITALS: BP 137/70
[2018-08-23] MEDS: ERYTHROMYCIN 250 MG DR TABLET PO SCH ×3 (07:30→18:51)
[2018-08-23] MEDS ORDERED: ONDANSETRON HCL 4 MG TABLET PO PRN (07:30)
[2018-08-23] MEDS ORDERED: DEXTROSE 50%-WATER 25 GM/50 ML SYRINGE IVP PRN (07:45)
[2018-08-23 08:07] VITALS: BP 149/70
[2018-08-23 08:13] LABS: GLUCOMETER DEV NAME(LOC) 6N 2D; GLUCOSE,POINT OF CARE 156 MG/DL (70-110)
[2018-08-23] MEDS: HydrALAZINE HCL 50 MG TABLET PO SCH ×3 (08:27→20:26)
[2018-08-23] MEDS: HEPARIN SODIUM,PORCINE 5,000 UNITS/ML VIAL SQ SCH ×2 (08:27→17:50)
[2018-08-23] MEDS: METOCLOPRAMIDE HCL 5 MG/ML 2 ML VIAL IVP SCH ×3 (08:28→20:26)
[2018-08-23] MEDS: PANTOPRAZOLE SODIUM 40 MG/VIAL IVP SCH ×2 (08:28→20:25)
[2018-08-23] MEDS: DOCUSATE SODIUM 100 MG CAPSULE PO SCH ×2 (08:28→20:25)
[2018-08-23] MEDS: LOSARTAN POTASSIUM 25 MG TABLET PO SCH (08:28)
[2018-08-23] MEDS: AmLODIPine BESYLATE 10 MG TABLET PO SCH ×2 (08:28→20:25)
[2018-08-23] MEDS: FUROSEMIDE 20 MG TABLET PO SCH (08:29)
[2018-08-23] MEDS: DEXTROSE 5%-0.45% SODIUM CHL 1,000 ML IV SCH (08:29)
[2018-08-23] MEDS: CHOLECALCIFEROL (VIT D3) 1,000 UNITS TABLET PO SCH (08:38)
[2018-08-23] MEDS: ONDANSETRON HCL 4 MG/2 ML VIAL IVP PRN ×3 (08:42→22:25)
[2018-08-23] MEDS ORDERED: FUROSEMIDE 20 MG TABLET PO SCH (09:00)
[2018-08-23] MEDS ORDERED: AmLODIPine BESYLATE 10 MG TABLET PO SCH (09:00)
[2018-08-23] MEDS: DILTIAZEM HCL CD 240 MG ER CAPSULE PO SCH (11:17)
[2018-08-23] MEDS ORDERED: DiphenhydrAMINE HCL 50 MG/ML VIAL IVP SCH (11:30)
[2018-08-23 12:26] VITALS: BP 149/77
[2018-08-23 15:08] LABS: APPEARANCE,URINE CLOUDY (CLEAR); BILIRUBIN,URINE PRELIM. POSITIVE (NEGATIVE); GLUCOSE, URINE (UA) 100 mg/dL (NEGATIVE); KETONES,URINE TRACE mg/dL (NEGATIVE); LEUKOCYTE ESTERASE ,URINE TRACE (NEGATIVE); NITRATE,URINE NEGATIVE (NEGATIVE); OCCULT BLOOD,URINE TRACE (NEGATIVE); PROTEIN,URINE SEE CONFIRM (NEGATIVE); UROBILINOGEN,URINE 0.2 mg/dL (<=1.0)
[2018-08-23 15:11] LABS: BACTERIA,URINE Few /HPF (None Seen); RBC,URINE 0-2 /HPF (0-2); SQUAMOUS EPITHELIAL CELL,UR Moderate /LPF (None Seen); SULFOSALICYLIC ACID,URINE 3+ (Negative)
[2018-08-23 16:11] VITALS: BP 127/56
[2018-08-23 17:53] LABS: GLUCOMETER DEV NAME(LOC) 6N 1E; GLUCOSE,POINT OF CARE 183 MG/DL (70-110)
[2018-08-23 20:01] VITALS: BP 136/63
[2018-08-23] MEDS: ATORVASTATIN CALCIUM 10 MG TABLET PO SCH (20:25)
[2018-08-23] MEDS: TERAZOSIN HCL 1 MG CAPSULE PO SCH (20:26)
[2018-08-23] MEDS ORDERED: CefTRIAXone SODIUM 1 GM in DEXTROSE 5%-WATER 10 ML IV ONE (20:45)
[2018-08-23] MEDS: INSULIN LISPRO 100 UNITS/ML SQ PRN (22:25)
[2018-08-24] VITALS (7 sets, daily range): BP systolic 106–163; BP diastolic 52–76
[2018-08-24] MEDS: HEPARIN SODIUM,PORCINE 5,000 UNITS/ML VIAL SQ SCH ×4 (00:48→23:37)
[2018-08-24] MEDS: ONDANSETRON HCL 4 MG/2 ML VIAL IVP PRN ×4 (02:18→21:05)
[2018-08-24 02:43] LABS: GLUCOMETER DEV NAME(LOC) 6N 1E; GLUCOSE,POINT OF CARE 183 MG/DL (70-110)
[2018-08-24] MEDS: INSULIN LISPRO 100 UNITS/ML SQ PRN ×4 (06:10→21:05)
[2018-08-24] MEDS: ERYTHROMYCIN 250 MG DR TABLET PO SCH ×3 (06:11→17:27)
[2018-08-24 06:24] LABS: BASOPHILS % (AUTO) 0.5 % (0.0-2.0); EOSINOPHILS % (AUTO) 0 % (1.0-6.0); HEMATOCRIT 29.1 % (41-53); LYMPHOCYTES # (AUTO) 0.7 K/uL (1.0-4.8); LYMPHOCYTES % (AUTO) 10.6 % (22.0-44.0); MEAN CORPUSCULAR HEMOGLOBIN 21.1 pg (26.0-34.0); MEAN CORPUSCULAR HGB CONC 30.8 G/dL (31.0-37.0); MEAN CORPUSCULAR VOLUME 68 fL (80-100); MONOCYTES # (AUTO) 0.6 K/uL (0.1-1.0); MONOCYTES % (AUTO) 10.1 % (2.0-9.0); NEUTROPHILS % (AUTO) 78.8 % (40.0-70.0); PLATELET COUNT (AUTO) 206 K/uL (150-450); RED BLOOD CELL COUNT(AUTO) 4.25 MIL/uL (4.50-5.90); RED CELL DISTRIBUTION WIDTH 17.9 % (11.5-14.5)
[2018-08-24 06:53] LABS: CREATININE 10.15 mg/dL (0.60-1.30); POTASSIUM 3.6 mmol/L (3.5-5.1)
[2018-08-24 06:54] LABS: CALCIUM, TOTAL 7.9 mg/dL (8.8-10.5); MAGNESIUM 2.2 mg/dL (1.80-2.40)
[2018-08-24 07:28] LABS: GLUCOMETER DEV NAME(LOC) 6N 1E; GLUCOSE,POINT OF CARE 217 MG/DL (70-110)
[2018-08-24] MEDS ORDERED: SODIUM CHLORIDE 0.9% 2,000 ML IV ONE (07:36)
[2018-08-24] MEDS ORDERED: EPOETIN ALFA 10,000 UNITS/ML 2 ML VIAL SQ SCH (09:00)
[2018-08-24] MEDS: METOCLOPRAMIDE HCL 5 MG/ML 2 ML VIAL IVP SCH ×3 (10:25→20:11)
[2018-08-24] MEDS ORDERED: FLUCONAZOLE 400 MG/NACL ISOOSM 200 ML IV PRN (11:15)
[2018-08-24] MEDS ORDERED: FLUCONAZOLE 400 MG/NACL ISOOSM 200 ML IV ONE (12:00)
[2018-08-24] MEDS: DEXTROSE 5%-0.45% SODIUM CHL 1,000 ML IV SCH (12:56)
[2018-08-24] MEDS: PANTOPRAZOLE SODIUM 40 MG/VIAL IVP SCH ×2 (12:57→20:11)
[2018-08-24] MEDS: FUROSEMIDE 20 MG TABLET PO SCH (12:58)
[2018-08-24] MEDS: CHOLECALCIFEROL (VIT D3) 1,000 UNITS TABLET PO SCH (12:58)
[2018-08-24] MEDS: AmLODIPine BESYLATE 10 MG TABLET PO SCH ×2 (12:59→20:11)
[2018-08-24] MEDS: DOCUSATE SODIUM 100 MG CAPSULE PO SCH ×2 (12:59→20:11)
[2018-08-24] MEDS: LOSARTAN POTASSIUM 25 MG TABLET PO SCH (12:59)
[2018-08-24] MEDS: DILTIAZEM HCL CD 240 MG ER CAPSULE PO SCH (12:59)
[2018-08-24] MEDS: HydrALAZINE HCL 50 MG TABLET PO SCH ×3 (13:00→20:11)
[2018-08-24] MEDS ORDERED: HEPARIN SODIUM,PORCINE 1,000 UNITS/ML VIAL IVP ONE (17:05)
[2018-08-24 18:53] LABS: GLUCOMETER DEV NAME(LOC) 6N 1E; GLUCOSE,POINT OF CARE 130 MG/DL (70-110)
[2018-08-24 18:53] LABS: GLUCOMETER DEV NAME(LOC) 6N 1E; GLUCOSE,POINT OF CARE 211 MG/DL (70-110)
[2018-08-24] MEDS: ATORVASTATIN CALCIUM 10 MG TABLET PO SCH (20:11)
[2018-08-24] MEDS: TERAZOSIN HCL 1 MG CAPSULE PO SCH (20:11)
[2018-08-24 21:23] LABS: GLUCOMETER DEV NAME(LOC) 6N 2D; GLUCOSE,POINT OF CARE 175 MG/DL (70-110)
[2018-08-25] MEDS: ONDANSETRON HCL 4 MG/2 ML VIAL IVP PRN ×4 (03:25→16:49)
[2018-08-25 04:39] VITALS: BP 139/72
[2018-08-25] MEDS: INSULIN LISPRO 100 UNITS/ML SQ PRN ×3 (05:47→22:45)
[2018-08-25] MEDS: ERYTHROMYCIN 250 MG DR TABLET PO SCH ×3 (07:30→17:12)
[2018-08-25 07:48] VITALS: BP 161/80
[2018-08-25] MEDS: DEXTROSE 5%-0.45% SODIUM CHL 1,000 ML IV SCH ×2 (08:30→08:36)
[2018-08-25] MEDS: METOCLOPRAMIDE HCL 5 MG/ML 2 ML VIAL IVP SCH ×3 (08:40→20:36)
[2018-08-25] MEDS: HEPARIN SODIUM,PORCINE 5,000 UNITS/ML VIAL SQ SCH ×2 (08:41→16:58)
[2018-08-25] MEDS: PANTOPRAZOLE SODIUM 40 MG/VIAL IVP SCH ×2 (08:41→20:35)
[2018-08-25] MEDS: AmLODIPine BESYLATE 10 MG TABLET PO SCH ×2 (08:41→20:36)
[2018-08-25] MEDS: DILTIAZEM HCL CD 240 MG ER CAPSULE PO SCH (09:00)
[2018-08-25] MEDS: LOSARTAN POTASSIUM 25 MG TABLET PO SCH (09:00)
[2018-08-25] MEDS: FUROSEMIDE 20 MG TABLET PO SCH (09:00)
[2018-08-25] MEDS: HydrALAZINE HCL 50 MG TABLET PO SCH ×3 (09:00→20:36)
[2018-08-25] MEDS: DOCUSATE SODIUM 100 MG CAPSULE PO SCH ×3 (09:00→22:44)
[2018-08-25] MEDS ORDERED: -POST HEMODIALYSIS NOTE- MISC SCH (09:00)
[2018-08-25] MEDS: CHOLECALCIFEROL (VIT D3) 1,000 UNITS TABLET PO SCH (09:00)
[2018-08-25 11:36] VITALS: BP 140/68
[2018-08-25 13:18] LABS: ALBUMIN 2.9 g/dL (3.4-5.0); BILIRUBIN,TOTAL 0.3 mg/dL (0.1-1.0); CALCIUM, TOTAL 7.9 mg/dL (8.8-10.5); CREATININE 6.62 mg/dL (0.60-1.30); POTASSIUM 3.3 mmol/L (3.5-5.1)
[2018-08-25] MEDS ORDERED: BARIUM SULFATE 0.1% SUSPENSION 450 ML BOTTLE ONE (13:53)
[2018-08-25 14:33] LABS: GLUCOMETER DEV NAME(LOC) 6N 2D; GLUCOSE,POINT OF CARE 175 MG/DL (70-110)
[2018-08-25 14:33] LABS: GLUCOMETER DEV NAME(LOC) 6N 2D; GLUCOSE,POINT OF CARE 173 MG/DL (70-110)
[2018-08-25 15:58] VITALS: BP 136/77
[2018-08-25 19:55] VITALS: BP 145/78
[2018-08-25 20:06] LABS: GLUCOMETER DEV NAME(LOC) 6N 1E; GLUCOSE,POINT OF CARE 182 MG/DL (70-110)
[2018-08-25] MEDS: TERAZOSIN HCL 1 MG CAPSULE PO SCH ×2 (20:36→22:44)
[2018-08-25] MEDS: ATORVASTATIN CALCIUM 10 MG TABLET PO SCH ×2 (20:38→22:44)
[2018-08-25 23:23] LABS: GLUCOMETER DEV NAME(LOC) 6N 1E; GLUCOSE,POINT OF CARE 194 MG/DL (70-110)
[2018-08-26 00:02] VITALS: BP 124/67
[2018-08-26] MEDS: ONDANSETRON HCL 4 MG/2 ML VIAL IVP PRN (02:10)
[2018-08-26] MEDS: DEXTROSE 5%-0.45% SODIUM CHL 1,000 ML IV SCH (02:26)
[2018-08-26 04:05] VITALS: BP 121/69
[2018-08-26] MEDS: INSULIN LISPRO 100 UNITS/ML SQ PRN ×2 (05:58→21:12)
[2018-08-26 07:03] LABS: GLUCOMETER DEV NAME(LOC) 6N 1E; GLUCOSE,POINT OF CARE 149 MG/DL (70-110)
[2018-08-26 08:06] VITALS: BP 147/73
[2018-08-26] MEDS: CHOLECALCIFEROL (VIT D3) 1,000 UNITS TABLET PO SCH (08:26)
[2018-08-26] MEDS: DOCUSATE SODIUM 100 MG CAPSULE PO SCH ×2 (08:27→21:04)
[2018-08-26] MEDS: METOCLOPRAMIDE HCL 5 MG/ML 2 ML VIAL IVP SCH ×3 (08:27→20:29)
[2018-08-26] MEDS: HEPARIN SODIUM,PORCINE 5,000 UNITS/ML VIAL SQ SCH ×3 (08:27→16:28)
[2018-08-26] MEDS: PANTOPRAZOLE SODIUM 40 MG/VIAL IVP SCH ×2 (08:27→20:28)
[2018-08-26] MEDS: ERYTHROMYCIN 250 MG DR TABLET PO SCH ×3 (08:34→17:30)
[2018-08-26] MEDS ORDERED: EPOETIN ALFA 10,000 UNITS/ML 2 ML VIAL SQ SCH (09:00)
[2018-08-26 11:33] VITALS: BP 154/75
[2018-08-26 11:53] LABS: GLUCOMETER DEV NAME(LOC) 6N 2D; GLUCOSE,POINT OF CARE 126 MG/DL (70-110)
[2018-08-26] MEDS ORDERED: SODIUM CHLORIDE 0.9% 1,000 ML IV ONE (12:36)
[2018-08-26] MEDS ORDERED: ONDA4 PO (13:14)
[2018-08-26] MEDS ORDERED: DIPH25TA17 PO (13:14)
[2018-08-26] MEDS ORDERED: SEVEC800 PO (13:15)
[2018-08-26] MEDS ORDERED: MANNITOL 25%-12.5 GM/50 ML VIAL IVP PRN (13:30)
[2018-08-26] MEDS ORDERED: HEPARIN SODIUM,PORCINE 1,000 UNITS/ML VIAL IVP ONE ×3 (13:30→16:51)
[2018-08-26] MEDS: HydrALAZINE HCL 50 MG TABLET PO SCH ×3 (16:00→21:04)
[2018-08-26] MEDS: LOSARTAN POTASSIUM 25 MG TABLET PO SCH (16:23)
[2018-08-26] MEDS: FUROSEMIDE 20 MG TABLET PO SCH (16:23)
[2018-08-26] MEDS: DILTIAZEM HCL CD 240 MG ER CAPSULE PO SCH (16:23)
[2018-08-26] MEDS: AmLODIPine BESYLATE 10 MG TABLET PO SCH ×2 (16:24→21:04)
[2018-08-26 17:42] LABS: GLUCOMETER DEV NAME(LOC) 6N 2D; GLUCOSE,POINT OF CARE 105 MG/DL (70-110)
[2018-08-26] MEDS ORDERED: FLUCONAZOLE 400 MG/NACL ISOOSM 200 ML IV SCH (20:00)
[2018-08-26 20:24] VITALS: BP 135/65
[2018-08-26] MEDS: TERAZOSIN HCL 1 MG CAPSULE PO SCH (21:04)
[2018-08-26] MEDS: ATORVASTATIN CALCIUM 10 MG TABLET PO SCH (21:04)
[2018-08-26] MEDS ORDERED: ACETAMINOPHEN 325 MG TABLET PO PRN (22:00)
[2018-08-26 23:25] VITALS: BP 131/59
[2018-08-27] MEDS: ONDANSETRON HCL 4 MG/2 ML VIAL IVP PRN ×2 (00:39→06:15)
[2018-08-27 04:57] VITALS: BP 145/74
[2018-08-27 07:01] LABS: HEMATOCRIT 29.2 % (41-53); HEMOGLOBIN 9.2 g/dL (13.5-17.5); MEAN CORPUSCULAR HEMOGLOBIN 21.2 pg (26.0-34.0); MEAN CORPUSCULAR HGB CONC 31.5 G/dL (31.0-37.0); MEAN CORPUSCULAR VOLUME 67 fL (80-100); PLATELET COUNT (AUTO) 191 K/uL (150-450); RED BLOOD CELL COUNT(AUTO) 4.35 MIL/uL (4.50-5.90); RED CELL DISTRIBUTION WIDTH 18.2 % (11.5-14.5)
[2018-08-27 07:07] LABS: CALCIUM, TOTAL 7.8 mg/dL (8.8-10.5); CREATININE 5.4 mg/dL (0.60-1.30); POTASSIUM 3.2 mmol/L (3.5-5.1)
[2018-08-27 07:20] VITALS: BP 140/62
[2018-08-27 07:38] LABS: BAND NEUTROPHILS % (MANUAL) 0 % (0-5)
[2018-08-27 07:41] LABS: EOSINOPHILS % (MANUAL) 1 % (1-6); LYMPHOCYTES % (MANUAL) 20 % (22-44); MONOCYTES % (MANUAL) 11 % (2-9); SEGMENTED NEUTROPHILS % 68 % (40-70)
[2018-08-27] MEDS: PANTOPRAZOLE SODIUM 40 MG/VIAL IVP SCH ×2 (08:08→20:50)
[2018-08-27] MEDS: DILTIAZEM HCL CD 240 MG ER CAPSULE PO SCH (08:08)
[2018-08-27] MEDS: HEPARIN SODIUM,PORCINE 5,000 UNITS/ML VIAL SQ SCH ×3 (08:08→16:47)
[2018-08-27] MEDS: ERYTHROMYCIN 250 MG DR TABLET PO SCH ×3 (08:08→16:46)
[2018-08-27] MEDS: LOSARTAN POTASSIUM 25 MG TABLET PO SCH (08:09)
[2018-08-27] MEDS: METOCLOPRAMIDE HCL 5 MG/ML 2 ML VIAL IVP SCH ×2 (08:09→16:47)
[2018-08-27] MEDS: CHOLECALCIFEROL (VIT D3) 1,000 UNITS TABLET PO SCH (08:09)
[2018-08-27] MEDS: FUROSEMIDE 20 MG TABLET PO SCH (08:10)
[2018-08-27] MEDS: AmLODIPine BESYLATE 10 MG TABLET PO SCH ×2 (08:10→20:50)
[2018-08-27] MEDS: HydrALAZINE HCL 50 MG TABLET PO SCH ×3 (08:10→20:50)
[2018-08-27] MEDS: DOCUSATE SODIUM 100 MG CAPSULE PO SCH ×2 (09:00→20:50)
[2018-08-27 11:24] LABS: GLUCOMETER DEV NAME(LOC) 6N 1E; GLUCOSE,POINT OF CARE 134 MG/DL (70-110)
[2018-08-27 11:24] LABS: GLUCOMETER DEV NAME(LOC) 6N 1E; GLUCOSE,POINT OF CARE 158 MG/DL (70-110)
[2018-08-27 11:28] LABS: GLUCOMETER DEV NAME(LOC) 6N 2D; GLUCOSE,POINT OF CARE 175 MG/DL (70-110)
[2018-08-27 12:00] VITALS: BP 120/57
[2018-08-27 15:10] VITALS: BP 129/60
[2018-08-27] MEDS: DEXTROSE 5%-0.45% SODIUM CHL 1,000 ML IV SCH (16:49)
[2018-08-27 19:08] LABS: GLUCOMETER DEV NAME(LOC) 6N 1E; GLUCOSE,POINT OF CARE 176 MG/DL (70-110)
[2018-08-27 19:57] VITALS: BP 138/64
[2018-08-27] MEDS: ATORVASTATIN CALCIUM 10 MG TABLET PO SCH (20:50)
[2018-08-27] MEDS: TERAZOSIN HCL 1 MG CAPSULE PO SCH (20:50)
[2018-08-27 21:21] LABS: GLUCOMETER DEV NAME(LOC) 6N 2D; GLUCOSE,POINT OF CARE 169 MG/DL (70-110)
[2018-08-27] MEDS: INSULIN LISPRO 100 UNITS/ML SQ PRN (21:54)
[2018-08-27 23:51] VITALS: BP 130/67
[2018-08-28] MEDS: METOCLOPRAMIDE HCL 5 MG/ML 2 ML VIAL IVP SCH ×3 (00:01→11:54)
[2018-08-28] MEDS: ONDANSETRON HCL 4 MG/2 ML VIAL IVP PRN (02:34)
[2018-08-28 04:15] VITALS: BP 147/70
[2018-08-28] MEDS: INSULIN LISPRO 100 UNITS/ML SQ PRN ×2 (06:12→11:54)
[2018-08-28 06:38] LABS: GLUCOMETER DEV NAME(LOC) 6N 1E; GLUCOSE,POINT OF CARE 158 MG/DL (70-110)
[2018-08-28 06:45] LABS: CALCIUM, TOTAL 7.9 mg/dL (8.8-10.5); CREATININE 6.93 mg/dL (0.60-1.30); POTASSIUM 3.2 mmol/L (3.5-5.1)
[2018-08-28 07:07] LABS: HEMATOCRIT 30.1 % (41-53); HEMOGLOBIN 9.4 g/dL (13.5-17.5); MEAN CORPUSCULAR HEMOGLOBIN 21.4 pg (26.0-34.0); MEAN CORPUSCULAR HGB CONC 31.4 G/dL (31.0-37.0); MEAN CORPUSCULAR VOLUME 68 fL (80-100); PLATELET COUNT (AUTO) 197 K/uL (150-450); RED CELL DISTRIBUTION WIDTH 18.2 % (11.5-14.5)
[2018-08-28 08:00] VITALS: BP 137/66
[2018-08-28 08:40] LABS: BAND NEUTROPHILS % (MANUAL) 1 % (0-5); LYMPHOCYTES % (MANUAL) 27 % (22-44); MONOCYTES % (MANUAL) 9 % (2-9); SEGMENTED NEUTROPHILS % 63 % (40-70)
[2018-08-28] MEDS: AmLODIPine BESYLATE 10 MG TABLET PO SCH ×2 (08:58→20:25)
[2018-08-28] MEDS: CHOLECALCIFEROL (VIT D3) 1,000 UNITS TABLET PO SCH (08:58)
[2018-08-28] MEDS: LOSARTAN POTASSIUM 25 MG TABLET PO SCH (08:58)
[2018-08-28] MEDS: DILTIAZEM HCL CD 240 MG ER CAPSULE PO SCH (08:58)
[2018-08-28] MEDS: ERYTHROMYCIN 250 MG DR TABLET PO SCH ×3 (08:58→16:24)
[2018-08-28] MEDS: FUROSEMIDE 20 MG TABLET PO SCH (08:58)
[2018-08-28] MEDS: DOCUSATE SODIUM 100 MG CAPSULE PO SCH ×2 (08:59→20:25)
[2018-08-28] MEDS: HEPARIN SODIUM,PORCINE 5,000 UNITS/ML VIAL SQ SCH ×3 (08:59→16:24)
[2018-08-28] MEDS: PANTOPRAZOLE SODIUM 40 MG/VIAL IVP SCH (08:59)
[2018-08-28] MEDS: HydrALAZINE HCL 50 MG TABLET PO SCH ×3 (08:59→20:26)
[2018-08-28] MEDS: DEXTROSE 5%-0.45% SODIUM CHL 1,000 ML IV SCH (11:53)
[2018-08-28 12:00] VITALS: BP 120/61
[2018-08-28 12:49] LABS: GLUCOMETER DEV NAME(LOC) 6N 2D; GLUCOSE,POINT OF CARE 177 MG/DL (70-110)
[2018-08-28] MEDS ORDERED: POTASSIUM CHLORIDE 20 MEQ ER TABLET PO SCH (14:30)
[2018-08-28 15:37] VITALS: BP 137/63
[2018-08-28] MEDS ORDERED: HYDR-2924 PO ×2 (17:08→17:10)
[2018-08-28] MEDS ORDERED: FLUC50TA PO (17:08)
[2018-08-28 19:22] VITALS: BP 126/63
[2018-08-28 20:13] LABS: GLUCOMETER DEV NAME(LOC) 6N 1E; GLUCOSE,POINT OF CARE 123 MG/DL (70-110)
[2018-08-28] MEDS: ATORVASTATIN CALCIUM 10 MG TABLET PO SCH (20:25)
[2018-08-28] MEDS: TERAZOSIN HCL 1 MG CAPSULE PO SCH (20:25)
[2018-08-28 21:09] LABS: GLUCOMETER DEV NAME(LOC) 6N 2D; GLUCOSE,POINT OF CARE 138 MG/DL (70-110)
== END 2018-08-28 20:50 | disposition home or self-care (01) | DRG 48 ==
LOC: EMS 19:49 → 6N 23:30
PROVIDERS: ADMIT Hospitalist; ATTEND Hospitalist
PROC: 5A1D70Z Performance of Urinary Filtration, Intermittent, Less than 6 Hours Per Day (ICD-10-PCS; principal; 2018-08-24)
PROC: 5A1D70Z Performance of Urinary Filtration, Intermittent, Less than 6 Hours Per Day (ICD-10-PCS; 2018-08-26)
DX: E11.43 Type 2 diabetes mellitus with diabetic autonomic (poly)neuropathy (principal); E11.21 Type 2 diabetes mellitus with diabetic nephropathy; B37.81 Candidal esophagitis; E11.22 Type 2 diabetes mellitus with diabetic chronic kidney disease; E87.1 Hypo-osmolality and hyponatremia; I12.0 Hypertensive chronic kidney disease with stage 5 chronic kidney disease or end stage renal disease; R18.8 Other ascites; K31.84 Gastroparesis; N18.6 End stage renal disease; E87.6 Hypokalemia; E86.0 Dehydration; D56.3 Thalassemia minor; D63.1 Anemia in chronic kidney disease; E11.319 Type 2 diabetes mellitus with unspecified diabetic retinopathy without macular edema; J98.11 Atelectasis; Z99.2 Dependence on renal dialysis; Z82.49 Family history of ischemic heart disease and other diseases of the circulatory system
CPT/HCPCS: 70450; 74177; 78264; 82533; 83605; 83735; 84100; 86709; 87081; 87086; 87340; 90935; 96361; 96374; 96375; A9541; C9113; G0378; J0696; J0885; J1450; J1644; J2405; J2765; J7030; J7060; Q0162

== ENCOUNTER 2018-10-07 23:59 | Inpatient (IN) | payer OTHER ==
[~2018-10-07] VITALS: Ht 165.1 cm; Wt 54.5 kg
[~2018-10-07 23:59] MED LIST changes: +ACET-784 PO; +BISA10S PR; -DIPH25CA85 PO; +FOLI0.8T2 PO; +FOLI1CAP2 PO; -LOSA25TA16 PO; +LOSA25TA41 PO; -METO5TAB95 PO; +ONDA4 PO; -ONDA4SOL2 PO; -SEVE0.8P6 PO; +SEVEC800 PO; +SITA25 PO
[2018-10-08] VITALS (9 sets, daily range): BP systolic 125–169; BP diastolic 68–101
[2018-10-08 00:13] LABS: GLUCOSE,POINT OF CARE 226 MG/DL (70-110)
[2018-10-08 00:50] LABS: APPEARANCE,URINE CLEAR (CLEAR); BILIRUBIN,URINE NEGATIVE (NEGATIVE); GLUCOSE, URINE (UA) 250 mg/dL (NEGATIVE); KETONES,URINE TRACE mg/dL (NEGATIVE); LEUKOCYTE ESTERASE ,URINE NEGATIVE (NEGATIVE); NITRATE,URINE NEGATIVE (NEGATIVE); OCCULT BLOOD,URINE SMALL (NEGATIVE); PH,URINE 7.5 (5.0-8.0); PROTEIN,URINE SEE CONFIRM (NEGATIVE); UROBILINOGEN,URINE 0.2 mg/dL (<=1.0)
[2018-10-08 00:51] LABS: BASOPHILS % (AUTO) 0.5 % (0.0-2.0); EOSINOPHILS % (AUTO) 0.2 % (1.0-6.0); LYMPHOCYTES # (AUTO) 0.8 K/uL (1.0-4.8); LYMPHOCYTES % (AUTO) 7.3 % (22.0-44.0); MEAN CORPUSCULAR HEMOGLOBIN 21.7 pg (26.0-34.0); MEAN CORPUSCULAR HGB CONC 30.8 G/dL (31.0-37.0); MEAN CORPUSCULAR VOLUME 70 fL (80-100); MONOCYTES # (AUTO) 0.5 K/uL (0.1-1.0); MONOCYTES % (AUTO) 4.6 % (2.0-9.0); RED BLOOD CELL COUNT(AUTO) 7.39 MIL/uL (4.50-5.90); RED CELL DISTRIBUTION WIDTH 25.1 % (11.5-14.5)
[2018-10-08 00:57] LABS: BACTERIA,URINE None Seen /HPF (None Seen); SQUAMOUS EPITHELIAL CELL,UR Rare /LPF (None Seen)
[2018-10-08 00:58] LABS: HYALINE CASTS, URINE 0-2 /LPF (None Seen)
[2018-10-08 00:59] LABS: CALCIUM, TOTAL 10.4 mg/dL (8.8-10.5); CREATININE 5.88 mg/dL (0.60-1.30); POTASSIUM 3.7 mmol/L (3.5-5.1)
[2018-10-08 00:59] LABS: SULFOSALICYLIC ACID,URINE 4+ (Negative)
[2018-10-08 01:04] LABS: ALBUMIN 4.7 g/dL (3.4-5.0); BILIRUBIN,TOTAL 0.8 mg/dL (0.1-1.0); TOTAL PROTEIN, SERUM 9.2 g/dL (6.4-8.2)
[2018-10-08] MEDS ORDERED: METOCLOPRAMIDE HCL 5 MG/ML 2 ML VIAL IVP ONE (01:15)
[2018-10-08] MEDS ORDERED: HydrALAZINE HCL 20 MG/ML VIAL IVP ONE (01:15)
[2018-10-08 01:19] LABS: NEUTROPHILS % (AUTO) 87.4 % (40.0-70.0)
[2018-10-08 01:20] LABS: HEMATOCRIT 50.9 % (41-53)
[2018-10-08 01:22] LABS: PLATELET COUNT (AUTO) 178 K/uL (150-450)
[2018-10-08 01:23] LABS: PLATELET MORPHOLOGY COMMENT LARGE PLTS PRESENT
[2018-10-08 06:24] LABS: ALBUMIN 4.2 g/dL (3.4-5.0); BILIRUBIN,TOTAL 0.6 mg/dL (0.1-1.0); CALCIUM, TOTAL 9.8 mg/dL (8.8-10.5); CREATININE 6.14 mg/dL (0.60-1.30); POTASSIUM 3.1 mmol/L (3.5-5.1); TOTAL PROTEIN, SERUM 8.2 g/dL (6.4-8.2)
[2018-10-08 07:14] LABS: BASOPHILS % (AUTO) 0.4 % (0.0-2.0); EOSINOPHILS % (AUTO) 0 % (1.0-6.0); HEMATOCRIT 48.1 % (41-53); HEMOGLOBIN 14.6 g/dL (13.5-17.5); LYMPHOCYTES # (AUTO) 0.8 K/uL (1.0-4.8); LYMPHOCYTES % (AUTO) 6.8 % (22.0-44.0); MEAN CORPUSCULAR HEMOGLOBIN 21.3 pg (26.0-34.0); MEAN CORPUSCULAR HGB CONC 30.4 G/dL (31.0-37.0); MEAN CORPUSCULAR VOLUME 70 fL (80-100); MONOCYTES # (AUTO) 0.7 K/uL (0.1-1.0); MONOCYTES % (AUTO) 5.8 % (2.0-9.0); PLATELET COUNT (AUTO) 171 K/uL (150-450); RED BLOOD CELL COUNT(AUTO) 6.86 MIL/uL (4.50-5.90); RED CELL DISTRIBUTION WIDTH 23.8 % (11.5-14.5)
[2018-10-08 07:54] LABS: GLUCOMETER DEV NAME(LOC) 5S.1; GLUCOSE,POINT OF CARE 214 MG/DL (70-110)
[2018-10-08] MEDS ORDERED: POTASSIUM CHLORIDE 20 MEQ ER TABLET PO ONE (08:30)
[2018-10-08] MEDS ORDERED: ACETAMINOPHEN 325 MG TABLET PO PRN ×2 (08:30→17:15)
[2018-10-08] MEDS ORDERED: POTASSIUM CHL 20 MEQ/0.45% NS 1,000 ML IV ONE (09:00)
[2018-10-08] MEDS: AmLODIPine BESYLATE 10 MG TABLET PO SCH ×2 (09:50→20:25)
[2018-10-08] MEDS: ONDANSETRON HCL 4 MG/2 ML VIAL IVP PRN ×2 (09:52→15:48)
[2018-10-08] MEDS: LOSARTAN POTASSIUM 25 MG TABLET PO SCH (11:33)
[2018-10-08] MEDS: HydrALAZINE HCL 50 MG TABLET PO SCH ×3 (11:34→20:25)
[2018-10-08 13:59] LABS: GLUCOMETER DEV NAME(LOC) 5S.2; GLUCOSE,POINT OF CARE 198 MG/DL (70-110)
[2018-10-08] MEDS: DILTIAZEM HCL CD 240 MG ER CAPSULE PO SCH (14:05)
[2018-10-08] MEDS ORDERED: GLUCAGON,HUMAN RECOMBINANT 1 MG VIAL IM PRN (17:15)
[2018-10-08] MEDS ORDERED: FUROSEMIDE 20 MG TABLET PO SCH (17:15)
[2018-10-08] MEDS ORDERED: MAGNESIUM HYDROXIDE SUSPENSION 30 ML UDCUP PO PRN (17:15)
[2018-10-08] MEDS ORDERED: 0.9% SODIUM CHLORIDE 10 ML SYRINGE IVP PRN (17:15)
[2018-10-08] MEDS ORDERED: BISACODYL 10 MG RECTAL RECTAL SUPPOSITORY PR PRN (17:15)
[2018-10-08] MEDS ORDERED: DEXTROSE 50%-WATER 25 GM/50 ML SYRINGE IVP PRN (17:30)
[2018-10-08] MEDS: ERYTHROMYCIN 250 MG DR TABLET PO SCH (18:25)
[2018-10-08] MEDS: SEVELAMER CARBONATE 800 MG TABLET PO SCH (18:25)
[2018-10-08] MEDS: INSULIN LISPRO 100 UNITS/ML SQ PRN ×2 (18:29→20:32)
[2018-10-08] MEDS: ATORVASTATIN CALCIUM 10 MG TABLET PO SCH (20:25)
[2018-10-08] MEDS: TERAZOSIN HCL 1 MG CAPSULE PO SCH (20:25)
[2018-10-08] MEDS: DOCUSATE SODIUM 100 MG CAPSULE PO SCH (20:25)
[2018-10-08 23:24] LABS: GLUCOMETER DEV NAME(LOC) 5N.1; GLUCOSE,POINT OF CARE 177 MG/DL (70-110)
[2018-10-08 23:24] LABS: GLUCOMETER DEV NAME(LOC) 5S.1; GLUCOSE,POINT OF CARE 245 MG/DL (70-110)
[2018-10-08 23:24] LABS: GLUCOMETER DEV NAME(LOC) 5S.1; GLUCOSE,POINT OF CARE 225 MG/DL (70-110)
[2018-10-09 04:30] VITALS: BP 139/79
[2018-10-09 05:41] LABS: BASOPHILS % (AUTO) 0.3 % (0.0-2.0); EOSINOPHILS % (AUTO) 0 % (1.0-6.0); HEMATOCRIT 42.6 % (41-53); LYMPHOCYTES # (AUTO) 0.8 K/uL (1.0-4.8); LYMPHOCYTES % (AUTO) 5.4 % (22.0-44.0); MEAN CORPUSCULAR HEMOGLOBIN 21.3 pg (26.0-34.0); MEAN CORPUSCULAR HGB CONC 30.8 G/dL (31.0-37.0); MEAN CORPUSCULAR VOLUME 69 fL (80-100); MONOCYTES # (AUTO) 0.7 K/uL (0.1-1.0); MONOCYTES % (AUTO) 4.8 % (2.0-9.0); NEUTROPHILS # (AUTO) 13.5 K/uL (1.8-7.7); PLATELET COUNT (AUTO) 133 K/uL (150-450); RED BLOOD CELL COUNT(AUTO) 6.16 MIL/uL (4.50-5.90); RED CELL DISTRIBUTION WIDTH 24.4 % (11.5-14.5)
[2018-10-09 05:52] LABS: CALCIUM, TOTAL 8.7 mg/dL (8.8-10.5); CREATININE 7.31 mg/dL (0.60-1.30); MAGNESIUM 2.1 mg/dL (1.80-2.40); PHOSPHORUS 4.9 mg/dL (2.5-4.9)
[2018-10-09 05:58] LABS: HEMOGLOBIN 13.5 g/dL (13.5-17.5); NEUTROPHILS % (AUTO) 89.5 % (40.0-70.0)
[2018-10-09] MEDS: INSULIN LISPRO 100 UNITS/ML SQ PRN ×3 (06:01→20:51)
[2018-10-09 07:27] VITALS: BP 104/66
[2018-10-09] MEDS: ERYTHROMYCIN 250 MG DR TABLET PO SCH ×3 (08:18→18:13)
[2018-10-09] MEDS: SEVELAMER CARBONATE 800 MG TABLET PO SCH ×3 (08:19→18:13)
[2018-10-09] MEDS: PANTOPRAZOLE SODIUM 40 MG/VIAL IVP SCH (08:19)
[2018-10-09] MEDS: DOCUSATE SODIUM 100 MG CAPSULE PO SCH ×2 (08:19→19:55)
[2018-10-09] MEDS: ONDANSETRON HCL 4 MG/2 ML VIAL IVP PRN ×4 (08:20→23:25)
[2018-10-09 08:25] VITALS: BP 144/71
[2018-10-09] MEDS: LOSARTAN POTASSIUM 25 MG TABLET PO SCH (09:00)
[2018-10-09] MEDS: HydrALAZINE HCL 50 MG TABLET PO SCH ×3 (09:00→19:55)
[2018-10-09] MEDS: DILTIAZEM HCL CD 240 MG ER CAPSULE PO SCH (09:00)
[2018-10-09] MEDS: AmLODIPine BESYLATE 10 MG TABLET PO SCH ×2 (09:00→19:55)
[2018-10-09 11:08] VITALS: BP 145/82
[2018-10-09] MEDS ORDERED: HEPARIN SODIUM,PORCINE 1,000 UNITS/ML VIAL IVP ONE (15:21)
[2018-10-09 15:40] VITALS: BP 160/82
[2018-10-09 19:42] VITALS: BP 171/95
[2018-10-09] MEDS: TERAZOSIN HCL 1 MG CAPSULE PO SCH (19:55)
[2018-10-09] MEDS: ATORVASTATIN CALCIUM 10 MG TABLET PO SCH (19:55)
[2018-10-09 20:04] LABS: GLUCOMETER DEV NAME(LOC) 5N.2; GLUCOSE,POINT OF CARE 133 MG/DL (70-110)
[2018-10-09 20:04] LABS: GLUCOMETER DEV NAME(LOC) 5N.1; GLUCOSE,POINT OF CARE 217 MG/DL (70-110)
[2018-10-09 20:04] LABS: GLUCOMETER DEV NAME(LOC) 5N.2; GLUCOSE,POINT OF CARE 248 MG/DL (70-110)
[2018-10-10 00:08] VITALS: BP 114/61
[2018-10-10 01:24] LABS: GLUCOMETER DEV NAME(LOC) 5N.2; GLUCOSE,POINT OF CARE 232 MG/DL (70-110)
[2018-10-10 04:30] VITALS: BP 137/72
[2018-10-10 06:43] LABS: CALCIUM, TOTAL 8.3 mg/dL (8.8-10.5); CREATININE 4.7 mg/dL (0.60-1.30); POTASSIUM 4.3 mmol/L (3.5-5.1)
[2018-10-10 07:09] VITALS: BP 144/73
[2018-10-10 07:18] LABS: BASOPHILS % (AUTO) 0.3 % (0.0-2.0); EOSINOPHILS % (AUTO) 0.1 % (1.0-6.0); HEMATOCRIT 44.1 % (41-53); HEMOGLOBIN 13.5 g/dL (13.5-17.5); LYMPHOCYTES # (AUTO) 1.5 K/uL (1.0-4.8); LYMPHOCYTES % (AUTO) 13.7 % (22.0-44.0); MEAN CORPUSCULAR HEMOGLOBIN 21.5 pg (26.0-34.0); MEAN CORPUSCULAR HGB CONC 30.5 G/dL (31.0-37.0); MEAN CORPUSCULAR VOLUME 71 fL (80-100); MONOCYTES # (AUTO) 0.6 K/uL (0.1-1.0); MONOCYTES % (AUTO) 5.2 % (2.0-9.0); NEUTROPHILS # (AUTO) 8.6 K/uL (1.8-7.7); NEUTROPHILS % (AUTO) 80.7 % (40.0-70.0); RED BLOOD CELL COUNT(AUTO) 6.26 MIL/uL (4.50-5.90); RED CELL DISTRIBUTION WIDTH 24.1 % (11.5-14.5)
[2018-10-10 07:25] LABS: PLATELET COUNT (AUTO) 97 K/uL (150-450)
[2018-10-10] MEDS: AmLODIPine BESYLATE 10 MG TABLET PO SCH (08:19)
[2018-10-10] MEDS: PANTOPRAZOLE SODIUM 40 MG/VIAL IVP SCH (08:19)
[2018-10-10] MEDS: DOCUSATE SODIUM 100 MG CAPSULE PO SCH (08:19)
[2018-10-10] MEDS: SEVELAMER CARBONATE 800 MG TABLET PO SCH ×2 (08:19→12:37)
[2018-10-10] MEDS: ERYTHROMYCIN 250 MG DR TABLET PO SCH ×2 (08:20→12:37)
[2018-10-10] MEDS: HydrALAZINE HCL 50 MG TABLET PO SCH (08:20)
[2018-10-10] MEDS: ONDANSETRON HCL 4 MG/2 ML VIAL IVP PRN ×2 (08:20→12:37)
[2018-10-10] MEDS: LOSARTAN POTASSIUM 25 MG TABLET PO SCH (09:00)
[2018-10-10] MEDS: DILTIAZEM HCL CD 240 MG ER CAPSULE PO SCH (09:00)
[2018-10-10 11:45] VITALS: BP 118/71
[2018-10-10] MEDS: INSULIN LISPRO 100 UNITS/ML SQ PRN (12:39)
[2018-10-10 19:04] LABS: GLUCOMETER DEV NAME(LOC) 5S.2; GLUCOSE,POINT OF CARE 130 MG/DL (70-110)
[2018-10-11 11:24] LABS: GLUCOMETER DEV NAME(LOC) 5N.1; GLUCOSE,POINT OF CARE 234 MG/DL (70-110)
== END 2018-10-10 15:22 | disposition home or self-care (01) | DRG 48 ==
LOC: EMS 23:59 → 5S 10-08 01:30
PROVIDERS: ADMIT Internal Medicine; ATTEND Internal Medicine
PROC: 5A1D70Z Performance of Urinary Filtration, Intermittent, Less than 6 Hours Per Day (ICD-10-PCS; principal; 2018-10-09)
DX: E11.43 Type 2 diabetes mellitus with diabetic autonomic (poly)neuropathy (principal); E87.3 Alkalosis; E11.21 Type 2 diabetes mellitus with diabetic nephropathy; E87.0 Hyperosmolality and hypernatremia; I12.0 Hypertensive chronic kidney disease with stage 5 chronic kidney disease or end stage renal disease; K31.84 Gastroparesis; E11.319 Type 2 diabetes mellitus with unspecified diabetic retinopathy without macular edema; E87.1 Hypo-osmolality and hyponatremia; N18.6 End stage renal disease; E11.22 Type 2 diabetes mellitus with diabetic chronic kidney disease; E87.6 Hypokalemia; D56.3 Thalassemia minor; D63.1 Anemia in chronic kidney disease; Z99.2 Dependence on renal dialysis; Z79.899 Other long term (current) drug therapy
CPT/HCPCS: 83735; 84100; 87081; 93005; 96374; 96375; C9113; G0378; J0360; J1644; J2405; J2765; J3480

== ENCOUNTER 2018-11-12 18:21 | Emergency (ER) | payer OTHER ==
[~2018-11-12] VITALS: Ht 167.6 cm; Wt 59.1 kg
[~2018-11-12 18:21] MED LIST changes: -TERA1 PO; +TERA1CAP7 PO
[2018-11-12 18:35] LABS: GLUCOSE,POINT OF CARE 280 MG/DL (70-110)
[2018-11-12] MEDS ORDERED: ONDANSETRON HCL 4 MG/2 ML VIAL IVP ONE (18:45)
[2018-11-12] MEDS ORDERED: SODIUM CHLORIDE 0.9% 500 ML IV ONE (18:45)
[2018-11-12 19:23] LABS: HEMATOCRIT 35.1 % (41-53); MEAN CORPUSCULAR HEMOGLOBIN 21.1 pg (26.0-34.0); MEAN CORPUSCULAR HGB CONC 31.5 G/dL (31.0-37.0); MEAN CORPUSCULAR VOLUME 67 fL (80-100); PLATELET COUNT (AUTO) 262 K/uL (150-450); RED BLOOD CELL COUNT(AUTO) 5.24 MIL/uL (4.50-5.90); RED CELL DISTRIBUTION WIDTH 21.8 % (11.5-14.5)
[2018-11-12] MEDS ORDERED: HALOPERIDOL LACTATE 5 MG/ML VIAL IVP ONE (19:45)
[2018-11-12 19:55] LABS: ALBUMIN 3.6 g/dL (3.4-5.0); BILIRUBIN,TOTAL 0.5 mg/dL (0.1-1.0); CALCIUM, TOTAL 9.4 mg/dL (8.8-10.5); CREATININE 6.24 mg/dL (0.60-1.30); TOTAL PROTEIN, SERUM 8.5 g/dL (6.4-8.2)
[2018-11-12 20:18] LABS: BAND NEUTROPHILS % (MANUAL) 0 % (0-5)
[2018-11-12 20:19] LABS: BASOPHILS % (MANUAL) 1 % (0-2); LYMPHOCYTES % (MANUAL) 8 % (22-44); MONOCYTES % (MANUAL) 8 % (2-9); SEGMENTED NEUTROPHILS % 83 % (40-70)
[2018-11-12 20:25] LABS: PLATELET MORPHOLOGY COMMENT LARGE PLTS PRESENT
[2018-11-12] MEDS ORDERED: PROMETHAZINE HCL 25 MG TABLET PO ONE (20:30)
[2018-11-12 20:58] VITALS: BP 151/86
== END 2018-11-12 21:54 | disposition home or self-care (01) ==
LOC: EMS 18:22
DX: R11.2 Nausea with vomiting, unspecified (principal); R10.84 Generalized abdominal pain; I12.0 Hypertensive chronic kidney disease with stage 5 chronic kidney disease or end stage renal disease; E11.22 Type 2 diabetes mellitus with diabetic chronic kidney disease; N18.6 End stage renal disease; Z99.2 Dependence on renal dialysis; Z79.899 Other long term (current) drug therapy
CPT/HCPCS: 36415; 80053; 82962; 83690; 84484; 85025; 93005; 96361; 96374; 96375; 99285; J1630; J2405; J7040

== ENCOUNTER 2019-08-15 19:28 | Inpatient (IN) | payer OTHER ==
[~2019-08-15] VITALS: Ht 167.6 cm; Wt 61.8 kg
[~2019-08-15 19:28] MED LIST changes: -AMLO-512 PO; +AMLO10TA7 PO; -BISA10S PR; +BISA10SU11 PR; +CHOL100018 PO; +SEVE800T17 PO; -SEVEC800 PO; -VITAD1000 PO
[2019-08-15 19:49] LABS: GLUCOSE,POINT OF CARE 241 MG/DL (70-110)
[2019-08-15 19:54] LABS: BASOPHILS % (AUTO) 0.7 % (0.0-2.0); EOSINOPHILS % (AUTO) 0.2 % (1.0-6.0); HEMATOCRIT 36.3 % (41-53); HEMOGLOBIN 11.5 g/dL (13.5-17.5); LYMPHOCYTES # (AUTO) 0.3 K/uL (1.0-4.8); MEAN CORPUSCULAR HEMOGLOBIN 22.8 pg (26.0-34.0); MEAN CORPUSCULAR HGB CONC 31.6 G/dL (31.0-37.0); MEAN CORPUSCULAR VOLUME 72 fL (80-100); MONOCYTES # (AUTO) 0.8 K/uL (0.1-1.0); MONOCYTES % (AUTO) 6.8 % (2.0-9.0); NEUTROPHILS # (AUTO) 9.9 K/uL (1.8-7.7); PLATELET COUNT (AUTO) 180 K/uL (150-450); RED BLOOD CELL COUNT(AUTO) 5.02 MIL/uL (4.50-5.90); RED CELL DISTRIBUTION WIDTH 19.9 % (11.5-14.5)
[2019-08-15 19:56] LABS: NEUTROPHILS % (AUTO) 89.3 % (40.0-70.0)
[2019-08-15 20:00] LABS: CALCIUM, TOTAL 9.8 mg/dL (8.8-10.5); CREATININE 4.16 mg/dL (0.60-1.30); POTASSIUM 3.4 mmol/L (3.5-5.1)
[2019-08-15 20:06] LABS: ALBUMIN 5.2 g/dL (3.4-5.0); BILIRUBIN,TOTAL 0.8 mg/dL (0.1-1.0); TOTAL PROTEIN, SERUM 10.2 g/dL (6.4-8.2)
[2019-08-15 20:11] LABS: PLATELET MORPHOLOGY COMMENT NORMAL
[2019-08-15] MEDS ORDERED: ONDANSETRON HCL 4 MG/2 ML VIAL IVP ONE (20:30)
[2019-08-15 20:43] LABS: PROTHROMBIN TIME 10.3 SEC (9.4-11.6)
[2019-08-15] MEDS ORDERED: DiphenhydrAMINE HCL 50 MG/ML VIAL IVP ONE (21:00)
[2019-08-15] MEDS ORDERED: METOCLOPRAMIDE HCL 5 MG/ML 2 ML VIAL IVP ONE (21:00)
[2019-08-15] MEDS ORDERED: ACETAMINOPHEN 325 MG TABLET PO PRN (21:15)
[2019-08-15] MEDS ORDERED: ONDANSETRON HCL 4 MG/2 ML VIAL IVP PRN (21:15)
[2019-08-15] MEDS ORDERED: 0.9% SODIUM CHLORIDE 10 ML SYRINGE IVP PRN (21:15)
[2019-08-15] MEDS ORDERED: BISACODYL 10 MG RECTAL RECTAL SUPPOSITORY PR PRN ×2 (22:45)
[2019-08-15] MEDS ORDERED: ZOLPIDEM TARTRATE 5 MG TABLET PO PRN (22:45)
[2019-08-15] MEDS ORDERED: HYDROCODONE/ACETAMINOPHEN 5-325 MG TABLET PO PRN (22:45)
[2019-08-15] MEDS ORDERED: MAGNESIUM HYDROXIDE SUSPENSION 30 ML UDCUP PO PRN (22:45)
[2019-08-15] MEDS ORDERED: MORPHINE SULFATE 2 MG/ML SYRINGE IVP PRN (22:45)
[2019-08-15] MEDS ORDERED: SODIUM CHLORIDE 0.9% 1,000 ML IV ONE (22:45)
[2019-08-15 23:58] VITALS: BP 174/83
[2019-08-16] MEDS: METOCLOPRAMIDE HCL 5 MG/ML 2 ML VIAL IVP SCH ×4 (00:17→23:51)
[2019-08-16] MEDS: HEPARIN SODIUM,PORCINE 5,000 UNITS/ML VIAL SQ SCH ×4 (01:56→23:51)
[2019-08-16] MEDS: ONDANSETRON HCL 4 MG/2 ML VIAL IVP PRN (01:57)
[2019-08-16 05:04] LABS: GLUCOMETER DEV NAME(LOC) 5N.2; GLUCOSE,POINT OF CARE 242 MG/DL (70-110)
[2019-08-16 05:44] VITALS: BP 159/81
[2019-08-16 05:51] LABS: GLUCOMETER DEV NAME(LOC) 5N.2; GLUCOSE,POINT OF CARE 198 MG/DL (70-110)
[2019-08-16 06:40] LABS: BASOPHILS % (AUTO) 0.3 % (0.0-2.0); EOSINOPHILS % (AUTO) 0 % (1.0-6.0); HEMATOCRIT 34.1 % (41-53); HEMOGLOBIN 10.9 g/dL (13.5-17.5); LYMPHOCYTES # (AUTO) 0.4 K/uL (1.0-4.8); LYMPHOCYTES % (AUTO) 5.7 % (22.0-44.0); MEAN CORPUSCULAR HGB CONC 31.9 G/dL (31.0-37.0); MEAN CORPUSCULAR VOLUME 72 fL (80-100); MONOCYTES # (AUTO) 0.4 K/uL (0.1-1.0); MONOCYTES % (AUTO) 5.4 % (2.0-9.0); NEUTROPHILS # (AUTO) 6.9 K/uL (1.8-7.7); PLATELET COUNT (AUTO) 154 K/uL (150-450); RED BLOOD CELL COUNT(AUTO) 4.72 MIL/uL (4.50-5.90); RED CELL DISTRIBUTION WIDTH 19.7 % (11.5-14.5)
[2019-08-16 06:43] LABS: NEUTROPHILS % (AUTO) 88.6 % (40.0-70.0)
[2019-08-16] MEDS ORDERED: DEXTROSE 50%-WATER 25 GM/50 ML SYRINGE IVP PRN (06:45)
[2019-08-16] MEDS: INSULIN LISPRO 100 UNITS/ML SQ PRN ×3 (07:04→18:11)
[2019-08-16 07:25] LABS: ALBUMIN 4.9 g/dL (3.4-5.0); BILIRUBIN,TOTAL 0.6 mg/dL (0.1-1.0); CALCIUM, TOTAL 9.2 mg/dL (8.8-10.5); CREATININE 5.48 mg/dL (0.60-1.30); POTASSIUM 3.6 mmol/L (3.5-5.1); TOTAL PROTEIN, SERUM 9.1 g/dL (6.4-8.2)
[2019-08-16 07:46] VITALS: BP 158/73
[2019-08-16] MEDS ORDERED: SEVELAMER CARBONATE 800 MG TABLET PO SCH (08:00)
[2019-08-16] MEDS: ERYTHROMYCIN 250 MG DR TABLET PO SCH ×3 (08:49→17:25)
[2019-08-16] MEDS: LOSARTAN POTASSIUM 25 MG TABLET PO SCH (08:50)
[2019-08-16] MEDS: DILTIAZEM HCL CD 240 MG ER CAPSULE PO SCH (08:50)
[2019-08-16] MEDS: DOCUSATE SODIUM 100 MG CAPSULE PO SCH ×2 (08:50→20:43)
[2019-08-16] MEDS: SitaGLIPtin PHOSPHATE 25 MG TABLET PO SCH (08:51)
[2019-08-16] MEDS: FUROSEMIDE 20 MG TABLET PO SCH (08:51)
[2019-08-16] MEDS: VITAMIN B COMP/VIT C/FOLIC ACID CAPSULE PO SCH (08:51)
[2019-08-16] MEDS: AmLODIPine BESYLATE 10 MG TABLET PO SCH ×2 (08:51→20:43)
[2019-08-16] MEDS: PANTOPRAZOLE SODIUM 40 MG DR TABLET PO SCH (08:51)
[2019-08-16] MEDS: CHOLECALCIFEROL (VIT D3) 2,000 UNITS TABLET PO SCH (08:52)
[2019-08-16] MEDS ORDERED: VITAMIN B COMP/VIT C/FOLIC ACID CAPSULE PO SCH (09:00)
[2019-08-16] MEDS: HydrALAZINE HCL 50 MG TABLET PO SCH ×3 (09:02→20:43)
[2019-08-16] MEDS ORDERED: PROCHLORPERAZINE MALEATE 5 MG TABLET PO PRN (10:30)
[2019-08-16 11:22] VITALS: BP 148/78
[2019-08-16 15:08] VITALS: BP 140/76
[2019-08-16 17:29] LABS: GLUCOMETER DEV NAME(LOC) 5S.2A; GLUCOSE,POINT OF CARE 175 MG/DL (70-110)
[2019-08-16 19:26] VITALS: BP 139/71
[2019-08-16 19:28] LABS: GLUCOMETER DEV NAME(LOC) 5N.1; GLUCOSE,POINT OF CARE 247 MG/DL (70-110)
[2019-08-16] MEDS: ACETAMINOPHEN 325 MG TABLET PO PRN (20:43)
[2019-08-16] MEDS ORDERED: TERAZOSIN HCL 1 MG CAPSULE PO SCH (21:00)
[2019-08-16] MEDS ORDERED: ATORVASTATIN CALCIUM 10 MG TABLET PO SCH (21:00)
[2019-08-16 23:46] VITALS: BP 116/55
[2019-08-17] MEDS: ACETAMINOPHEN 325 MG TABLET PO PRN (03:30)
[2019-08-17 05:01] VITALS: BP 139/82
[2019-08-17] MEDS: INSULIN LISPRO 100 UNITS/ML SQ PRN ×2 (06:07→17:59)
[2019-08-17 06:09] LABS: BASOPHILS % (AUTO) 0.4 % (0.0-2.0); EOSINOPHILS % (AUTO) 0.1 % (1.0-6.0); HEMATOCRIT 32.8 % (41-53); HEMOGLOBIN 10.5 g/dL (13.5-17.5); LYMPHOCYTES # (AUTO) 0.7 K/uL (1.0-4.8); MEAN CORPUSCULAR HEMOGLOBIN 22.8 pg (26.0-34.0); MEAN CORPUSCULAR HGB CONC 31.8 G/dL (31.0-37.0); MEAN CORPUSCULAR VOLUME 72 fL (80-100); MONOCYTES # (AUTO) 0.8 K/uL (0.1-1.0); MONOCYTES % (AUTO) 8.1 % (2.0-9.0); NEUTROPHILS % (AUTO) 84.4 % (40.0-70.0); PLATELET COUNT (AUTO) 162 K/uL (150-450); RED BLOOD CELL COUNT(AUTO) 4.58 MIL/uL (4.50-5.90); RED CELL DISTRIBUTION WIDTH 19.1 % (11.5-14.5)
[2019-08-17 06:19] LABS: CALCIUM, TOTAL 8.7 mg/dL (8.8-10.5); CREATININE 8.21 mg/dL (0.60-1.30); POTASSIUM 3.5 mmol/L (3.5-5.1)
[2019-08-17 06:31] LABS: GLUCOMETER DEV NAME(LOC) 5N.1; GLUCOSE,POINT OF CARE 223 MG/DL (70-110)
[2019-08-17 07:46] VITALS: BP 127/70
[2019-08-17 09:48] LABS: GLUCOMETER DEV NAME(LOC) 5N.2; GLUCOSE,POINT OF CARE 208 MG/DL (70-110)
[2019-08-17] MEDS: SitaGLIPtin PHOSPHATE 25 MG TABLET PO SCH (10:02)
[2019-08-17] MEDS ORDERED: ONDA4 PO (11:21)
[2019-08-17] MEDS ORDERED: COMP5 PO ×2 (11:21→15:52)
[2019-08-17 11:47] VITALS: BP 168/84
[2019-08-17 12:16] LABS: GLUCOMETER DEV NAME(LOC) 5N.2; GLUCOSE,POINT OF CARE 130 MG/DL (70-110)
[2019-08-17] MEDS: HEPARIN SODIUM,PORCINE 5,000 UNITS/ML VIAL SQ SCH ×2 (13:31→16:00)
[2019-08-17] MEDS: ERYTHROMYCIN 250 MG DR TABLET PO SCH ×3 (13:31→18:00)
[2019-08-17] MEDS: DOCUSATE SODIUM 100 MG CAPSULE PO SCH (13:32)
[2019-08-17] MEDS: AmLODIPine BESYLATE 10 MG TABLET PO SCH (13:33)
[2019-08-17] MEDS: PANTOPRAZOLE SODIUM 40 MG DR TABLET PO SCH (13:33)
[2019-08-17] MEDS: DILTIAZEM HCL CD 240 MG ER CAPSULE PO SCH (13:34)
[2019-08-17] MEDS: CHOLECALCIFEROL (VIT D3) 2,000 UNITS TABLET PO SCH (13:34)
[2019-08-17] MEDS: VITAMIN B COMP/VIT C/FOLIC ACID CAPSULE PO SCH (13:34)
[2019-08-17] MEDS: HydrALAZINE HCL 50 MG TABLET PO SCH ×2 (13:35→16:00)
[2019-08-17] MEDS: LOSARTAN POTASSIUM 25 MG TABLET PO SCH (13:35)
[2019-08-17] MEDS: FUROSEMIDE 20 MG TABLET PO SCH (13:35)
[2019-08-17] MEDS: METOCLOPRAMIDE HCL 5 MG/ML 2 ML VIAL IVP SCH ×2 (13:36→16:00)
[2019-08-17] MEDS: ONDANSETRON HCL 4 MG/2 ML VIAL IVP PRN (13:45)
[2019-08-17 17:02] VITALS: BP 132/70
[2019-08-17 17:19] LABS: GLUCOMETER DEV NAME(LOC) 5N.1; GLUCOSE,POINT OF CARE 172 MG/DL (70-110)
[2019-08-18 01:04] LABS: GLUCOMETER DEV NAME(LOC) 5S.2A; GLUCOSE,POINT OF CARE 130 MG/DL (70-110)
[2019-08-20] MEDS ORDERED: EPOETIN ALFA 10,000 UNITS/ML 2 ML VIAL SQ SCH (09:00)
== END 2019-08-17 19:00 | disposition home or self-care (01) | DRG 48 ==
LOC: EMS 19:29 → 5S 21:00
PROVIDERS: ADMIT Internal Medicine; ATTEND Internal Medicine
PROC: 5A1D70Z Performance of Urinary Filtration, Intermittent, Less than 6 Hours Per Day (ICD-10-PCS; principal; 2019-08-17)
DX: E11.43 Type 2 diabetes mellitus with diabetic autonomic (poly)neuropathy (principal); E11.21 Type 2 diabetes mellitus with diabetic nephropathy; I12.0 Hypertensive chronic kidney disease with stage 5 chronic kidney disease or end stage renal disease; E11.22 Type 2 diabetes mellitus with diabetic chronic kidney disease; K31.84 Gastroparesis; N18.6 End stage renal disease; E78.5 Hyperlipidemia, unspecified; D56.3 Thalassemia minor; D63.1 Anemia in chronic kidney disease; Z99.2 Dependence on renal dialysis; Z79.899 Other long term (current) drug therapy
CPT/HCPCS: 86706; 86709; 87081; 87340; 93005; 96374; 96375; J1200; J1644; J2405; J2765; J7030

== ENCOUNTER 2021-02-22 16:28 | Inpatient (IN) | payer OTHER ==
[~2021-02-22] VITALS: Ht 157.5 cm; Wt 64.0 kg
[~2021-02-22 16:28] MED LIST changes: +AMLO-258 PO; -AMLO10TA7 PO; +DILT-72 PO; -DILT240C93 PO; -ERYT-122 PO; -FOLI0.8T2 PO; -HYDR-2924 PO; +HYDR50TA36 PO; +LOSA25TA21 PO; -LOSA25TA41 PO; +ONDA-104 PO; -ONDA4 PO; +PROC5TAB54 PO; +TERA1CAP53 PO; -TERA1CAP7 PO; +[UNRECOGNIZED DRUG - CODE] PO
[2021-02-22] MEDS ORDERED: METO5TAB95 PO (16:52)
[2021-02-22] MEDS ORDERED: METOCLOPRAMIDE HCL 5 MG/ML 2 ML VIAL IVP ONE ×2 (17:00→19:15)
[2021-02-22 17:02] LABS: BASOPHILS % (AUTO) 1.3 % (0.0-2.0); EOSINOPHILS % (AUTO) 2.6 % (1.0-6.0); HEMATOCRIT 29.9 % (41-53); HEMOGLOBIN 9.4 g/dL (13.5-17.5); LYMPHOCYTES # (AUTO) 0.6 K/uL (1.0-4.8); LYMPHOCYTES % (AUTO) 9.8 % (22.0-44.0); MEAN CORPUSCULAR HGB CONC 31.3 G/dL (31.0-37.0); MEAN CORPUSCULAR VOLUME 74 fL (80-100); MONOCYTES # (AUTO) 0.4 K/uL (0.1-1.0); MONOCYTES % (AUTO) 7.4 % (2.0-9.0); NEUTROPHILS # (AUTO) 4.7 K/uL (1.8-7.7); NEUTROPHILS % (AUTO) 78.9 % (40.0-70.0); PLATELET COUNT (AUTO) 125 K/uL (150-450); RED BLOOD CELL COUNT(AUTO) 4.07 MIL/uL (4.50-5.90); RED CELL DISTRIBUTION WIDTH 19.4 % (11.5-14.5)
[2021-02-22] MEDS ORDERED: CHOL100044 PO (17:03)
[2021-02-22 17:12] LABS: GLUCOSE,POINT OF CARE 215 MG/DL (70-110)
[2021-02-22 17:19] LABS: TROPONIN I < 0.02 ng/mL (0.00-0.05)
[2021-02-22 17:20] LABS: ABG BASE EXCESS 3.5 mmol/L (-2.0-3.0); ABG CARBOXYHEMOGLOBIN 2.3 % (0.0-1.5); ABG HCO3 27.7 mmol/L (22.0-26.0); ABG METHEMOGLOBIN 0.3 % (0.0-1.5); ABG OXYGEN SATURATION 96.2 % (95.0-98.0); ABG OXYHEMOGLOBIN 93.7 % (94.0-100.0); ABG PCO2 35 mmHg (35-45); ABG PH 7.505 (7.35-7.450); ABG TOTAL HEMOGLOBIN 11.3 G/dL (12.0-18.0); SITE, BLOOD GAS RT RADIAL; SOURCE, BLOOD GAS ARTERIAL; TEMPERATURE, FAHRENHEIT, BG 98.3 FAHREN (96.0-98.6)
[2021-02-22 17:21] LABS: O2 DEVICE,BLOOD GAS CANNULA (ROOM AIR)
[2021-02-22 17:28] LABS: AMMONIA 17 umol/L (11-32)
[2021-02-22 17:31] LABS: BILIRUBIN,TOTAL 0.8 mg/dL (0.1-1.0); POTASSIUM 3.6 mmol/L (3.5-5.1); TOTAL PROTEIN, SERUM 9.1 g/dL (6.4-8.2)
[2021-02-22 17:45] LABS: PLATELET MORPHOLOGY COMMENT LARGE PLTS PRESENT
[2021-02-22 17:45] LABS: COVID AG,FIA SOURCE NASOPHARYNGEAL
[2021-02-22 17:54] LABS: CREATININE 8.37 mg/dL (0.60-1.30)
[2021-02-22 17:55] LABS: CALCIUM, TOTAL 9.4 mg/dL (8.8-10.5)
[2021-02-22 17:59] LABS: ALBUMIN 5.2 g/dL (3.4-5.0)
[2021-02-22] MEDS ORDERED: ONDANSETRON HCL 4 MG/2 ML VIAL IVP ONE (18:30)
[2021-02-22] MEDS ORDERED: FAMOTIDINE 10 MG/ML 2 ML VIAL IVP ONE (18:30)
[2021-02-22] MEDS ORDERED: DiphenhydrAMINE HCL 50 MG/ML VIAL IVP ONE (19:15)
[2021-02-22 21:44] LABS: APPEARANCE,URINE CLEAR (CLEAR); GLUCOSE, URINE (UA) 100 mg/dL (NEGATIVE); KETONES,URINE TRACE mg/dL (NEGATIVE); LEUKOCYTE ESTERASE ,URINE NEGATIVE (NEGATIVE); NITRATE,URINE NEGATIVE (NEGATIVE); OCCULT BLOOD,URINE TRACE (NEGATIVE); PROTEIN,URINE SEE CONFIRM (NEGATIVE); UROBILINOGEN,URINE 0.2 mg/dL (<=1.0)
[2021-02-22 21:45] LABS: BILIRUBIN,URINE PRELIM. POSITIVE (NEGATIVE)
[2021-02-22 21:53] LABS: AMPHET/METH SCREEN,URINE NEGATIVE (NEGATIVE); BACTERIA,URINE Rare /HPF (None Seen); BARBITURATE SCREEN, URINE NEGATIVE (NEGATIVE); BENZODIAZEPINES SCREEN,URINE NEGATIVE (NEGATIVE); CANNABINOID SCREEN,URINE NEGATIVE (NEGATIVE); COCAINE SCREEN,URINE NEGATIVE (NEGATIVE); METHADONE SCREEN, URINE NEGATIVE (NEGATIVE); OPIATE SCREEN,URINE NEGATIVE (NEGATIVE); PHENCYCLIDINE SCREEN,URINE NEGATIVE (NEGATIVE); SQUAMOUS EPITHELIAL CELL,UR Rare /LPF (None Seen); SULFOSALICYLIC ACID,URINE 4+ (Negative); WBC,URINE 0-2 /HPF (0-5)
[2021-02-22] MEDS ORDERED: ACETAMINOPHEN 325 MG TABLET PO PRN (22:30)
[2021-02-22] MEDS ORDERED: 0.9% SODIUM CHLORIDE 10 ML SYRINGE IVP PRN (22:30)
[2021-02-22] MEDS ORDERED: ONDANSETRON HCL 4 MG/2 ML VIAL IVP PRN (22:30)
[2021-02-22] MEDS ORDERED: DEXTROSE 50%-WATER 25 GM/50 ML SYRINGE IVP PRN (22:45)
[2021-02-22 23:55] LABS: % IRON SATURATION 50.5 % (30-44)
[2021-02-22 23:57] LABS: HEMOGLOBIN A1C 5.9 % (3.8-5.6)
[2021-02-23] MEDS ORDERED: METOPROLOL TARTRATE 25 MG TABLET PO ONE (01:45)
[2021-02-23 02:23] VITALS: BP 170/76
[2021-02-23 04:14] VITALS: BP 153/73
[2021-02-23] MEDS: INSULIN LISPRO 100 UNITS/ML SQ PRN ×2 (05:37→21:30)
[2021-02-23 06:11] LABS: BASOPHILS % (AUTO) 0.8 % (0.0-2.0); EOSINOPHILS % (AUTO) 0 % (1.0-6.0); HEMATOCRIT 34.7 % (41-53); HEMOGLOBIN 10.9 g/dL (13.5-17.5); LYMPHOCYTES # (AUTO) 0.5 K/uL (1.0-4.8); LYMPHOCYTES % (AUTO) 6.9 % (22.0-44.0); MEAN CORPUSCULAR HEMOGLOBIN 22.9 pg (26.0-34.0); MEAN CORPUSCULAR HGB CONC 31.3 G/dL (31.0-37.0); MEAN CORPUSCULAR VOLUME 73 fL (80-100); MONOCYTES # (AUTO) 0.6 K/uL (0.1-1.0); MONOCYTES % (AUTO) 8.8 % (2.0-9.0); NEUTROPHILS # (AUTO) 5.8 K/uL (1.8-7.7); NEUTROPHILS % (AUTO) 83.5 % (40.0-70.0); PLATELET COUNT (AUTO) 157 K/uL (150-450); RED BLOOD CELL COUNT(AUTO) 4.73 MIL/uL (4.50-5.90)
[2021-02-23 06:23] LABS: CREATININE 9.59 mg/dL (0.60-1.30); MAGNESIUM 2.5 mg/dL (1.80-2.40); POTASSIUM 4.2 mmol/L (3.5-5.1)
[2021-02-23 06:49] LABS: PLATELET MORPHOLOGY COMMENT LARGE PLTS PRESENT
[2021-02-23] MEDS ORDERED: PNEUMOCOCCAL VACCINE POLYVALENT 0.5 ML VIAL [PPSV23] IM. ONE (07:00)
[2021-02-23 07:55] VITALS: BP 158/73
[2021-02-23] MEDS: SEVELAMER CARBONATE 800 MG TABLET PO SCH ×3 (08:00→17:48)
[2021-02-23] MEDS: METOCLOPRAMIDE HCL 5 MG TABLET PO SCH ×3 (08:00→17:48)
[2021-02-23] MEDS ORDERED: HydrALAZINE HCL 50 MG TABLET PO SCH (09:00)
[2021-02-23] MEDS ORDERED: AmLODIPine BESYLATE 10 MG TABLET PO SCH (09:00)
[2021-02-23 11:25] VITALS: BP 187/76
[2021-02-23] MEDS: DILTIAZEM HCL CD 120 MG ER CAPSULE PO SCH (13:04)
[2021-02-23] MEDS: CHOLECALCIFEROL (VIT D3) 1,000 UNITS [25 MCG] TABLET PO SCH (13:04)
[2021-02-23] MEDS: FUROSEMIDE 40 MG/4 ML VIAL IVP SCH (13:04)
[2021-02-23 16:20] VITALS: BP 158/78
[2021-02-23] MEDS: HydrALAZINE HCL 25 MG TABLET PO SCH ×2 (16:33→21:21)
[2021-02-23] MEDS ORDERED: IOHEXOL 350 MG/ML 100 ML VIAL ONE (16:59)
[2021-02-23] MEDS ORDERED: SODIUM CHLORIDE 0.9% 100 ML ONE (16:59)
[2021-02-23 19:56] LABS: GLUCOMETER DEV NAME(LOC) 5S.2B; GLUCOSE,POINT OF CARE 192 MG/DL (70-110)
[2021-02-23 19:57] LABS: GLUCOMETER DEV NAME(LOC) 5S.2B; GLUCOSE,POINT OF CARE 140 MG/DL (70-110)
[2021-02-23 19:57] LABS: GLUCOMETER DEV NAME(LOC) 5N.1C; GLUCOSE,POINT OF CARE 120 MG/DL (70-110)
[2021-02-23 20:16] VITALS: BP 155/81
[2021-02-23] MEDS: ATORVASTATIN CALCIUM 10 MG TABLET PO SCH (21:21)
[2021-02-23] MEDS: TERAZOSIN HCL 1 MG CAPSULE PO SCH (21:21)
[2021-02-23 23:05] LABS: GLUCOMETER DEV NAME(LOC) 5N.1C; GLUCOSE,POINT OF CARE 165 MG/DL (70-110)
[2021-02-24 00:17] VITALS: BP 163/78
[2021-02-24] MEDS: INSULIN LISPRO 100 UNITS/ML SQ PRN ×4 (05:05→20:47)
[2021-02-24 05:38] VITALS: BP 140/68
[2021-02-24 06:02] LABS: LYMPHOCYTES # (AUTO) 0.5 K/uL (1.0-4.8); MONOCYTES # (AUTO) 0.7 K/uL (0.1-1.0); RED BLOOD CELL COUNT(AUTO) 5.18 MIL/uL (4.50-5.90)
[2021-02-24 06:10] LABS: BASOPHILS % (AUTO) 0.9 % (0.0-2.0); EOSINOPHILS % (AUTO) 0.6 % (1.0-6.0); HEMATOCRIT 37.7 % (41-53); HEMOGLOBIN 11.9 g/dL (13.5-17.5); LYMPHOCYTES % (AUTO) 7.2 % (22.0-44.0); MEAN CORPUSCULAR HEMOGLOBIN 22.9 pg (26.0-34.0); MEAN CORPUSCULAR HGB CONC 31.5 G/dL (31.0-37.0); MEAN CORPUSCULAR VOLUME 73 fL (80-100); MONOCYTES % (AUTO) 9.8 % (2.0-9.0); NEUTROPHILS % (AUTO) 81.5 % (40.0-70.0); PLATELET COUNT (AUTO) 182 K/uL (150-450)
[2021-02-24 06:20] LABS: ALBUMIN 4.7 g/dL (3.4-5.0); BILIRUBIN,TOTAL 0.8 mg/dL (0.1-1.0); CALCIUM, TOTAL 9.2 mg/dL (8.8-10.5); CREATININE 7.55 mg/dL (0.60-1.30); POTASSIUM 4.2 mmol/L (3.5-5.1); TOTAL PROTEIN, SERUM 8.9 g/dL (6.4-8.2)
[2021-02-24 06:36] LABS: GLUCOMETER DEV NAME(LOC) 5N.1C; GLUCOSE,POINT OF CARE 159 MG/DL (70-110)
[2021-02-24 08:15] VITALS: BP 153/68
[2021-02-24] MEDS: HydrALAZINE HCL 25 MG TABLET PO SCH ×3 (09:03→20:46)
[2021-02-24] MEDS: SEVELAMER CARBONATE 800 MG TABLET PO SCH ×3 (09:03→16:55)
[2021-02-24] MEDS: PANTOPRAZOLE SODIUM 40 MG DR TABLET PO SCH (09:03)
[2021-02-24] MEDS: DILTIAZEM HCL CD 120 MG ER CAPSULE PO SCH (09:04)
[2021-02-24] MEDS: FUROSEMIDE 40 MG/4 ML VIAL IVP SCH ×2 (09:04→20:45)
[2021-02-24] MEDS: METOCLOPRAMIDE HCL 5 MG TABLET PO SCH ×3 (09:04→16:55)
[2021-02-24] MEDS: CHOLECALCIFEROL (VIT D3) 1,000 UNITS [25 MCG] TABLET PO SCH (09:04)
[2021-02-24 11:45] VITALS: BP 142/73
[2021-02-24 12:42] LABS: GLUCOMETER DEV NAME(LOC) 5S.2B; GLUCOSE,POINT OF CARE 197 MG/DL (70-110)
[2021-02-24 16:10] VITALS: BP 141/65
[2021-02-24 17:47] LABS: GLUCOMETER DEV NAME(LOC) 5S.2B; GLUCOSE,POINT OF CARE 170 MG/DL (70-110)
[2021-02-24 20:20] VITALS: BP 135/57
[2021-02-24] MEDS: TERAZOSIN HCL 1 MG CAPSULE PO SCH (20:46)
[2021-02-24] MEDS: ATORVASTATIN CALCIUM 10 MG TABLET PO SCH (20:46)
[2021-02-24 22:51] LABS: GLUCOMETER DEV NAME(LOC) 5N.1C; GLUCOSE,POINT OF CARE 214 MG/DL (70-110)
[2021-02-25 00:35] VITALS: BP 134/69
[2021-02-25 04:42] VITALS: BP 151/74
[2021-02-25] MEDS: INSULIN LISPRO 100 UNITS/ML SQ PRN ×3 (06:09→20:12)
[2021-02-25 07:11] VITALS: BP 156/76
[2021-02-25 07:30] LABS: GLUCOMETER DEV NAME(LOC) 5S.1; GLUCOSE,POINT OF CARE 190 MG/DL (70-110)
[2021-02-25] MEDS: HydrALAZINE HCL 25 MG TABLET PO SCH ×3 (08:51→20:10)
[2021-02-25] MEDS: PANTOPRAZOLE SODIUM 40 MG DR TABLET PO SCH (08:51)
[2021-02-25] MEDS: CHOLECALCIFEROL (VIT D3) 1,000 UNITS [25 MCG] TABLET PO SCH (08:51)
[2021-02-25] MEDS: SEVELAMER CARBONATE 800 MG TABLET PO SCH ×3 (08:51→17:09)
[2021-02-25] MEDS: FUROSEMIDE 40 MG/4 ML VIAL IVP SCH ×2 (08:52→20:09)
[2021-02-25] MEDS: DILTIAZEM HCL CD 120 MG ER CAPSULE PO SCH (08:55)
[2021-02-25] MEDS: METOCLOPRAMIDE HCL 5 MG TABLET PO SCH ×3 (08:55→17:09)
[2021-02-25 10:49] VITALS: BP 148/82
[2021-02-25] MEDS ORDERED: FURO20 PO (12:01)
[2021-02-25] MEDS ORDERED: HYDR25TA84 PO (12:01)
[2021-02-25] MEDS ORDERED: AmLODIPine BESYLATE 5 MG TABLET PO SCH (12:15)
[2021-02-25 14:53] VITALS: BP 152/78
[2021-02-25 20:00] VITALS: BP 151/73
[2021-02-25] MEDS: ATORVASTATIN CALCIUM 10 MG TABLET PO SCH (20:09)
[2021-02-25] MEDS: TERAZOSIN HCL 1 MG CAPSULE PO SCH (20:10)
[2021-02-25 23:00] LABS: GLUCOMETER DEV NAME(LOC) 5N.1C; GLUCOSE,POINT OF CARE 124 MG/DL (70-110)
[2021-02-25 23:00] LABS: GLUCOMETER DEV NAME(LOC) 5N.1C; GLUCOSE,POINT OF CARE 156 MG/DL (70-110)
[2021-02-26 17:01] LABS: GLUCOMETER DEV NAME(LOC) 5N.3; GLUCOSE,POINT OF CARE 203 MG/DL (70-110)
== END 2021-02-25 21:30 | disposition home or self-care (01) | DRG 249 ==
LOC: EMS 16:30 → 5S 22:52
PROVIDERS: ADMIT Internal Medicine; ATTEND Internal Medicine
PROC: 5A1D70Z Performance of Urinary Filtration, Intermittent, Less than 6 Hours Per Day (ICD-10-PCS; principal; 2021-02-23)
PROC: 5A1D70Z Performance of Urinary Filtration, Intermittent, Less than 6 Hours Per Day (ICD-10-PCS; 2021-02-25)
DX: A08.4 Viral intestinal infection, unspecified (principal); J96.01 Acute respiratory failure with hypoxia; I13.2 Hypertensive heart and chronic kidney disease with heart failure and with stage 5 chronic kidney disease, or end stage renal disease; K80.20 Calculus of gallbladder without cholecystitis without obstruction; N18.6 End stage renal disease; Z99.2 Dependence on renal dialysis; E11.22 Type 2 diabetes mellitus with diabetic chronic kidney disease; K76.9 Liver disease, unspecified; Z20.822 Contact with and (suspected) exposure to COVID-19; E78.5 Hyperlipidemia, unspecified; I50.31 Acute diastolic (congestive) heart failure; R16.0 Hepatomegaly, not elsewhere classified; Z79.899 Other long term (current) drug therapy; Z82.49 Family history of ischemic heart disease and other diseases of the circulatory system; Z83.3 Family history of diabetes mellitus
CPT/HCPCS: 36600; 71045; 71250; 74176; 74177; 76705; 80048; 80053; 81001; 81002; 82105; 82140; 82550; 82805; 82962; 83036; 83540; 83550; 83690; 83735; 83880; 84145; 84484; 85025; 85379; 87426; 93005; 93306; 93970; 99285; A9575; J1200; J1940; J2405; J2765; J3490; J7050; 36415-L1; 36415-TC; U0003

== ENCOUNTER 2021-03-11 18:50 | Inpatient (IN) | payer OTHER ==
[~2021-03-11] VITALS: Ht 157.5 cm; Wt 56.6 kg
[~2021-03-11 18:50] MED LIST changes: -ACET-784 PO; -BISA10SU11 PR; -CHOL100018 PO; +CHOL100044 PO; -FOLI1CAP2 PO; +HYDR25TA84 PO; -HYDR50TA36 PO; -LOSA25TA21 PO; +METO5TAB95 PO; -OMEP20 PO; -ONDA-104 PO; -PROC5TAB54 PO; -SITA25 PO; -[UNRECOGNIZED DRUG - CODE] PO
[2021-03-11] MEDS ORDERED: MORPHINE SULFATE 2 MG/ML SYRINGE IVP ONE (19:45)
[2021-03-11] MEDS ORDERED: SODIUM CHLORIDE 0.9% 250 ML IV ONE (19:45)
[2021-03-11] MEDS ORDERED: ONDANSETRON HCL 4 MG/2 ML VIAL IVP ONE (19:45)
[2021-03-11 20:22] LABS: BASOPHILS % (AUTO) 1.1 % (0.0-2.0); EOSINOPHILS % (AUTO) 0.7 % (1.0-6.0); HEMATOCRIT 37.6 % (41-53); HEMOGLOBIN 11.7 g/dL (13.5-17.5); LYMPHOCYTES # (AUTO) 0.6 K/uL (1.0-4.8); MEAN CORPUSCULAR HEMOGLOBIN 22.3 pg (26.0-34.0); MEAN CORPUSCULAR HGB CONC 31.1 G/dL (31.0-37.0); MEAN CORPUSCULAR VOLUME 72 fL (80-100); MONOCYTES # (AUTO) 0.6 K/uL (0.1-1.0); MONOCYTES % (AUTO) 6.4 % (2.0-9.0); NEUTROPHILS # (AUTO) 8.5 K/uL (1.8-7.7); PLATELET COUNT (AUTO) 329 K/uL (150-450); RED BLOOD CELL COUNT(AUTO) 5.25 MIL/uL (4.50-5.90)
[2021-03-11 20:27] LABS: NEUTROPHILS % (AUTO) 85.8 % (40.0-70.0)
[2021-03-11 20:32] LABS: ANION GAP 18 mmol/L (8-16); CALCIUM, TOTAL 9.4 mg/dL (8.8-10.5); CARBON DIOXIDE 25 mmol/L (22-29); CHLORIDE 100 mmol/L (98-107); CREATININE 8.49 mg/dL (0.60-1.30); GLOMERULAR FILTR. RATE CALC 7 mL/min (>60); GLUCOSE,RANDOM 200 mg/dL (70-110); POTASSIUM 4.7 mmol/L (3.5-5.1); SODIUM SERUM 143 mmol/L (136-145); UREA NITROGEN, BLOOD 36 mg/dL (7-18)
[2021-03-11 20:38] LABS: ALANINE AMINOTRANSFERASE 19 U/L (12-78); ALBUMIN 4.6 g/dL (3.4-5.0); ALKALINE PHOSPHATASE 101 U/L (46-116); ASPARTATE AMINOTRANSFERASE 22 U/L (15-37); BILIRUBIN,TOTAL 0.8 mg/dL (0.1-1.0); LIPASE 59 U/L (73-393); TOTAL PROTEIN, SERUM 9.5 g/dL (6.4-8.2)
[2021-03-11 20:40] LABS: PLATELET MORPHOLOGY COMMENT GIANT PLTS PRESENT
[2021-03-11 20:43] LABS: LACTIC ACID 3.6 mmol/L (0.4-2.0)
[2021-03-11 21:05] LABS: APPEARANCE,URINE SL CLOUDY (CLEAR); GLUCOSE, URINE (UA) 100 mg/dL (NEGATIVE); KETONES,URINE TRACE mg/dL (NEGATIVE); LEUKOCYTE ESTERASE ,URINE NEGATIVE (NEGATIVE); NITRATE,URINE NEGATIVE (NEGATIVE); OCCULT BLOOD,URINE TRACE (NEGATIVE); PH,URINE 8.5 (5.0-8.0); PROTEIN,URINE SEE CONFIRM (NEGATIVE); UROBILINOGEN,URINE 0.2 mg/dL (<=1.0)
[2021-03-11 21:06] LABS: BILIRUBIN,URINE PRELIM. POSITIVE (NEGATIVE)
[2021-03-11 21:10] LABS: COVID AG,FIA SOURCE NASOPHARYNGEAL
[2021-03-11 21:18] LABS: SULFOSALICYLIC ACID,URINE 3+ (Negative)
[2021-03-11 21:19] LABS: BACTERIA,URINE Few /HPF (None Seen); SQUAMOUS EPITHELIAL CELL,UR Few /LPF (None Seen)
[2021-03-11] MEDS ORDERED: CefTRIAXone 1 GM/DEXTROSE 50 ML IV ONE (21:45)
[2021-03-11] MEDS ORDERED: ONDANSETRON HCL 4 MG/2 ML VIAL IVP PRN (22:00)
[2021-03-11] MEDS ORDERED: ACETAMINOPHEN 325 MG TABLET PO PRN ×2 (22:00→22:45)
[2021-03-11] MEDS ORDERED: SODIUM CHLORIDE 0.9% 500 ML IV ONE (22:45)
[2021-03-11] MEDS ORDERED: METOCLOPRAMIDE HCL 5 MG/ML 2 ML VIAL IVP PRN (22:45)
[2021-03-11 23:23] VITALS: BP 164/76
[2021-03-11] MEDS: HEPARIN SODIUM,PORCINE 5,000 UNITS/ML VIAL SQ SCH (23:29)
[2021-03-12] VITALS (7 sets, daily range): BP systolic 146–189; BP diastolic 70–94
[2021-03-12] MEDS ORDERED: HydrALAZINE HCL 20 MG/ML VIAL IVP ONE (04:15)
[2021-03-12] MEDS ORDERED: AmLODIPine BESYLATE 5 MG TABLET PO ONE (05:30)
[2021-03-12 06:23] LABS: HEMATOCRIT 33.3 % (41-53); HEMOGLOBIN 10.4 g/dL (13.5-17.5); MEAN CORPUSCULAR HEMOGLOBIN 22.3 pg (26.0-34.0); MEAN CORPUSCULAR HGB CONC 31.3 G/dL (31.0-37.0); MEAN CORPUSCULAR VOLUME 71 fL (80-100); PLATELET COUNT (AUTO) 266 K/uL (150-450); RED BLOOD CELL COUNT(AUTO) 4.67 MIL/uL (4.50-5.90); RED CELL DISTRIBUTION WIDTH 19.6 % (11.5-14.5)
[2021-03-12 06:41] LABS: ALBUMIN 3.8 g/dL (3.4-5.0); BILIRUBIN,DIRECT 0.1 mg/dL (0.00-0.20); BILIRUBIN,TOTAL 0.5 mg/dL (0.1-1.0); CALCIUM, TOTAL 8.6 mg/dL (8.8-10.5); CREATININE 8.93 mg/dL (0.60-1.30); MAGNESIUM 2.3 mg/dL (1.80-2.40); POTASSIUM 4.3 mmol/L (3.5-5.1); TOTAL PROTEIN, SERUM 7.8 g/dL (6.4-8.2)
[2021-03-12 07:01] LABS: BAND NEUTROPHILS % (MANUAL) 0 % (0-5)
[2021-03-12 07:03] LABS: LYMPHOCYTES % (MANUAL) 9 % (22-44); MONOCYTES % (MANUAL) 6 % (2-9); SEGMENTED NEUTROPHILS % 85 % (40-70)
[2021-03-12] MEDS: HEPARIN SODIUM,PORCINE 5,000 UNITS/ML VIAL SQ SCH ×3 (08:00→23:39)
[2021-03-12] MEDS ORDERED: MEBROFENIN TC99M/MCL ISOTOPE 1 EA INJ INJ ONE (10:00)
[2021-03-12] MEDS: ONDANSETRON HCL 4 MG/2 ML VIAL IVP PRN (10:37)
[2021-03-12] MEDS ORDERED: IOHEXOL 350 MG/ML 100 ML VIAL ONE (12:13)
[2021-03-12] MEDS ORDERED: SODIUM CHLORIDE 0.9% 100 ML ONE (12:13)
[2021-03-12] MEDS ORDERED: SODIUM CHLORIDE 0.9% 2,000 ML ONE (13:49)
[2021-03-12] MEDS ORDERED: [UNRECOGNIZED DRUG - REMARK] IV ONE ×2 (16:00)
[2021-03-12] MEDS ORDERED: AmLODIPine BESYLATE 10 MG TABLET PO ONE (19:00)
[2021-03-12 19:58] LABS: GLUCOMETER DEV NAME(LOC) 5S.2B; GLUCOSE,POINT OF CARE 161 MG/DL (70-110)
[2021-03-12] MEDS ORDERED: SODIUM CHLORIDE 0.9% 250 ML IV ONE (20:59)
[2021-03-12] MEDS: CefTRIAXone 1 GM/DEXTROSE 50 ML IV SCH (21:04)
[2021-03-12 22:21] LABS: GLUCOMETER DEV NAME(LOC) 5N.1C; GLUCOSE,POINT OF CARE 141 MG/DL (70-110)
[2021-03-12 22:21] LABS: GLUCOMETER DEV NAME(LOC) 5N.1C; GLUCOSE,POINT OF CARE 109 MG/DL (70-110)
[2021-03-13 00:02] VITALS: BP 186/80
[2021-03-13] MEDS: HydrALAZINE HCL 20 MG/ML VIAL IVP PRN ×2 (02:51→11:27)
[2021-03-13 04:27] VITALS: BP 159/77
[2021-03-13 07:42] VITALS: BP 158/77
[2021-03-13] MEDS: AmLODIPine BESYLATE 10 MG TABLET PO SCH (09:03)
[2021-03-13] MEDS: HEPARIN SODIUM,PORCINE 5,000 UNITS/ML VIAL SQ SCH ×3 (09:03→23:55)
[2021-03-13 11:29] VITALS: BP 173/80
[2021-03-13] MEDS: ONDANSETRON HCL 4 MG/2 ML VIAL IVP PRN (18:25)
[2021-03-13 19:15] VITALS: BP 154/79
[2021-03-13] MEDS: CefTRIAXone 1 GM/DEXTROSE 50 ML IV SCH (20:44)
[2021-03-13 22:55] LABS: GLUCOMETER DEV NAME(LOC) 5N.1C; GLUCOSE,POINT OF CARE 141 MG/DL (70-110)
[2021-03-13 22:56] LABS: GLUCOMETER DEV NAME(LOC) 5N.1C; GLUCOSE,POINT OF CARE 148 MG/DL (70-110)
[2021-03-13 23:40] VITALS: BP 151/81
[2021-03-14] VITALS (7 sets, daily range): BP systolic 131–188; BP diastolic 66–88
[2021-03-14 01:18] LABS: GLUCOMETER DEV NAME(LOC) 5S.1; GLUCOSE,POINT OF CARE 135 MG/DL (70-110)
[2021-03-14] MEDS: HydrALAZINE HCL 20 MG/ML VIAL IVP PRN ×2 (03:45→16:07)
[2021-03-14 06:54] LABS: GLUCOMETER DEV NAME(LOC) 5N.1C; GLUCOSE,POINT OF CARE 128 MG/DL (70-110)
[2021-03-14 06:54] LABS: GLUCOMETER DEV NAME(LOC) 5S.2B; GLUCOSE,POINT OF CARE 150 MG/DL (70-110)
[2021-03-14] MEDS: AmLODIPine BESYLATE 10 MG TABLET PO SCH (08:53)
[2021-03-14] MEDS: HEPARIN SODIUM,PORCINE 5,000 UNITS/ML VIAL SQ SCH ×3 (08:53→23:26)
[2021-03-14] MEDS ORDERED: SODIUM CHLORIDE 0.9% 2,000 ML ONE (09:22)
[2021-03-14] MEDS: VITAMIN B COMP/VIT C/FOLIC ACID CAPSULE PO SCH (14:01)
[2021-03-14 20:23] LABS: GLUCOMETER DEV NAME(LOC) 5S.2B; GLUCOSE,POINT OF CARE 115 MG/DL (70-110)
[2021-03-14 20:24] LABS: GLUCOMETER DEV NAME(LOC) 5S.2B; GLUCOSE,POINT OF CARE 114 MG/DL (70-110)
[2021-03-14 20:24] LABS: GLUCOMETER DEV NAME(LOC) 5S.2B; GLUCOSE,POINT OF CARE 120 MG/DL (70-110)
[2021-03-14] MEDS: CefTRIAXone 1 GM/DEXTROSE 50 ML IV SCH (20:39)
[2021-03-15] VITALS (7 sets, daily range): BP systolic 141–180; BP diastolic 65–84
[2021-03-15] MEDS: HydrALAZINE HCL 20 MG/ML VIAL IVP PRN (05:41)
[2021-03-15 05:59] LABS: GLUCOMETER DEV NAME(LOC) 5N.1C; GLUCOSE,POINT OF CARE 132 MG/DL (70-110)
[2021-03-15] MEDS: VITAMIN B COMP/VIT C/FOLIC ACID CAPSULE PO SCH (08:26)
[2021-03-15] MEDS: HEPARIN SODIUM,PORCINE 5,000 UNITS/ML VIAL SQ SCH ×2 (08:26→15:51)
[2021-03-15] MEDS: AmLODIPine BESYLATE 10 MG TABLET PO SCH (08:26)
[2021-03-15] MEDS: CefTRIAXone 1 GM/DEXTROSE 50 ML IV SCH (20:06)
[2021-03-16] MEDS: HEPARIN SODIUM,PORCINE 5,000 UNITS/ML VIAL SQ SCH ×4 (00:14→23:50)
[2021-03-16] MEDS: HydrALAZINE HCL 20 MG/ML VIAL IVP PRN (00:16)
[2021-03-16 04:21] VITALS: BP 163/77
[2021-03-16 05:56] LABS: GLUCOMETER DEV NAME(LOC) 5N.1C; GLUCOSE,POINT OF CARE 150 MG/DL (70-110)
[2021-03-16 06:27] LABS: GLUCOMETER DEV NAME(LOC) 5S.1; GLUCOSE,POINT OF CARE 163 MG/DL (70-110)
[2021-03-16 06:27] LABS: GLUCOMETER DEV NAME(LOC) 5S.1; GLUCOSE,POINT OF CARE 196 MG/DL (70-110)
[2021-03-16 06:27] LABS: GLUCOMETER DEV NAME(LOC) 5S.1; GLUCOSE,POINT OF CARE 214 MG/DL (70-110)
[2021-03-16 07:11] VITALS: BP 171/87
[2021-03-16] MEDS: VITAMIN B COMP/VIT C/FOLIC ACID CAPSULE PO SCH (08:17)
[2021-03-16] MEDS ORDERED: SODIUM CHLORIDE 0.9% 2,000 ML ONE (08:43)
[2021-03-16 12:00] VITALS: BP 169/73
[2021-03-16] MEDS: AmLODIPine BESYLATE 10 MG TABLET PO SCH (13:56)
[2021-03-16 15:51] VITALS: BP 125/73
[2021-03-16 18:00] LABS: GLUCOMETER DEV NAME(LOC) 5N.3; GLUCOSE,POINT OF CARE 117 MG/DL (70-110)
[2021-03-16 18:00] LABS: GLUCOMETER DEV NAME(LOC) 5N.3; GLUCOSE,POINT OF CARE 145 MG/DL (70-110)
[2021-03-16 19:34] VITALS: BP 121/61
[2021-03-16] MEDS: CefTRIAXone 1 GM/DEXTROSE 50 ML IV SCH (21:32)
[2021-03-16 23:23] VITALS: BP 159/79
[2021-03-17 04:09] VITALS: BP 161/79
[2021-03-17 05:22] LABS: GLUCOMETER DEV NAME(LOC) 5N.1C; GLUCOSE,POINT OF CARE 178 MG/DL (70-110)
[2021-03-17 05:22] LABS: GLUCOMETER DEV NAME(LOC) 5N.1C; GLUCOSE,POINT OF CARE 194 MG/DL (70-110)
[2021-03-17 07:13] VITALS: BP 155/83
[2021-03-17 07:46] LABS: GLUCOMETER DEV NAME(LOC) 5S.2B; GLUCOSE,POINT OF CARE 239 MG/DL (70-110)
[2021-03-17 07:46] LABS: GLUCOMETER DEV NAME(LOC) 5S.2B; GLUCOSE,POINT OF CARE 153 MG/DL (70-110)
[2021-03-17] MEDS: VITAMIN B COMP/VIT C/FOLIC ACID CAPSULE PO SCH (08:52)
[2021-03-17] MEDS: AmLODIPine BESYLATE 10 MG TABLET PO SCH (08:52)
[2021-03-17] MEDS: HEPARIN SODIUM,PORCINE 5,000 UNITS/ML VIAL SQ SCH ×2 (08:53→16:23)
[2021-03-17 11:08] VITALS: BP 116/69
[2021-03-17 12:10] LABS: GLUCOMETER DEV NAME(LOC) 5S.2B; GLUCOSE,POINT OF CARE 133 MG/DL (70-110)
[2021-03-17 15:24] VITALS: BP 136/76
[2021-03-17 20:02] VITALS: BP 154/83
[2021-03-17] MEDS ORDERED: SODIUM CHLORIDE 0.9% 100 ML ONE (20:40)
[2021-03-17] MEDS: CefTRIAXone 1 GM/DEXTROSE 50 ML IV SCH (20:43)
[2021-03-17 23:06] LABS: GLUCOMETER DEV NAME(LOC) 5S.2B; GLUCOSE,POINT OF CARE 141 MG/DL (70-110)
[2021-03-17 23:06] LABS: GLUCOMETER DEV NAME(LOC) 5N.1C; GLUCOSE,POINT OF CARE 154 MG/DL (70-110)
[2021-03-18 00:06] VITALS: BP 159/90
[2021-03-18] MEDS: HEPARIN SODIUM,PORCINE 5,000 UNITS/ML VIAL SQ SCH ×3 (00:49→16:08)
[2021-03-18 04:23] VITALS: BP 156/86
[2021-03-18 06:47] LABS: GLUCOMETER DEV NAME(LOC) 5S.1; GLUCOSE,POINT OF CARE 122 MG/DL (70-110)
[2021-03-18 07:23] VITALS: BP 129/80
[2021-03-18] MEDS: VITAMIN B COMP/VIT C/FOLIC ACID CAPSULE PO SCH (08:12)
[2021-03-18] MEDS: AmLODIPine BESYLATE 10 MG TABLET PO SCH (09:00)
[2021-03-18] MEDS ORDERED: SODIUM CHLORIDE 0.9% 2,000 ML ONE (09:07)
[2021-03-18 09:32] LABS: BASOPHILS % (AUTO) 1.2 % (0.0-2.0); EOSINOPHILS % (AUTO) 10.9 % (1.0-6.0); HEMATOCRIT 37.7 % (41-53); HEMOGLOBIN 11.8 g/dL (13.5-17.5); LYMPHOCYTES # (AUTO) 0.7 K/uL (1.0-4.8); LYMPHOCYTES % (AUTO) 12.6 % (22.0-44.0); MEAN CORPUSCULAR HEMOGLOBIN 22.5 pg (26.0-34.0); MEAN CORPUSCULAR HGB CONC 31.3 G/dL (31.0-37.0); MEAN CORPUSCULAR VOLUME 72 fL (80-100); MONOCYTES # (AUTO) 0.5 K/uL (0.1-1.0); MONOCYTES % (AUTO) 9.5 % (2.0-9.0); NEUTROPHILS # (AUTO) 3.4 K/uL (1.8-7.7); NEUTROPHILS % (AUTO) 65.8 % (40.0-70.0); PLATELET COUNT (AUTO) 142 K/uL (150-450); RED BLOOD CELL COUNT(AUTO) 5.25 MIL/uL (4.50-5.90); RED CELL DISTRIBUTION WIDTH 24.8 % (11.5-14.5)
[2021-03-18 09:53] LABS: CALCIUM, TOTAL 7.9 mg/dL (8.8-10.5); CREATININE 7.34 mg/dL (0.60-1.30); MAGNESIUM 2.2 mg/dL (1.80-2.40); PHOSPHORUS 6.7 mg/dL (2.5-4.9); POTASSIUM 4.8 mmol/L (3.5-5.1)
[2021-03-18 11:41] VITALS: BP 154/97
[2021-03-18] MEDS ORDERED: MetroNIDAZOLE 500 MG/NACL 100 ML IV SCH (12:00)
[2021-03-18 15:06] LABS: GLUCOMETER DEV NAME(LOC) 5S.2B; GLUCOSE,POINT OF CARE 137 MG/DL (70-110)
[2021-03-18 20:08] LABS: GLUCOMETER DEV NAME(LOC) 5N.1C; GLUCOSE,POINT OF CARE 156 MG/DL (70-110)
== END 2021-03-18 18:20 | disposition left against medical advice (07) ==
LOC: EMS 18:50 → 5S 22:30
PROVIDERS: ADMIT Internal Medicine; ATTEND Internal Medicine
PROC: 5A1D70Z Performance of Urinary Filtration, Intermittent, Less than 6 Hours Per Day (ICD-10-PCS; principal; 2021-03-12)
PROC: 5A1D70Z Performance of Urinary Filtration, Intermittent, Less than 6 Hours Per Day (ICD-10-PCS; 2021-03-14)
PROC: 5A1D70Z Performance of Urinary Filtration, Intermittent, Less than 6 Hours Per Day (ICD-10-PCS; 2021-03-16)
PROC: 5A1D70Z Performance of Urinary Filtration, Intermittent, Less than 6 Hours Per Day (ICD-10-PCS; 2021-03-18)
DX: K80.10 Calculus of gallbladder with chronic cholecystitis without obstruction (principal); E87.3 Alkalosis; E11.43 Type 2 diabetes mellitus with diabetic autonomic (poly)neuropathy; B37.81 Candidal esophagitis; E44.0 Moderate protein-calorie malnutrition; K31.84 Gastroparesis; E11.22 Type 2 diabetes mellitus with diabetic chronic kidney disease; E11.319 Type 2 diabetes mellitus with unspecified diabetic retinopathy without macular edema; I12.0 Hypertensive chronic kidney disease with stage 5 chronic kidney disease or end stage renal disease; N18.6 End stage renal disease; D56.3 Thalassemia minor; D63.1 Anemia in chronic kidney disease; E78.5 Hyperlipidemia, unspecified; E86.9 Volume depletion, unspecified; K76.9 Liver disease, unspecified; N39.0 Urinary tract infection, site not specified; E87.0 Hyperosmolality and hypernatremia; K20.90 Esophagitis, unspecified without bleeding; Z68.22 Body mass index [BMI] 22.0-22.9, adult; Z83.3 Family history of diabetes mellitus; Z82.49 Family history of ischemic heart disease and other diseases of the circulatory system; Z99.2 Dependence on renal dialysis; Z79.899 Other long term (current) drug therapy; Z20.822 Contact with and (suspected) exposure to COVID-19
CPT/HCPCS: 71045; 74176; 74178; 76700; 78226; 80048; 80053; 80074; 80076; 81001; 81002; 82378; 82962; 83036; 83605; 83690; 83735; 84100; 84484; 85025; 86301; 87040; 87081; 87086; 93005; 99285; A9537; A9575; G0378; J0360; J0696; J1644; J2270; J2405; J3490; J7030; J7040; J7050; 36415-L1; 36415-TC

== ENCOUNTER 2021-09-30 18:45 | Emergency (ER) | payer OTHER ==
[~2021-09-30] VITALS: Ht 170.2 cm; Wt 65.9 kg
[~2021-09-30 18:45] MED LIST changes: +CHOL-35 PO; -CHOL100044 PO
[2021-09-30] MEDS ORDERED: ONDANSETRON HCL 4 MG/2 ML VIAL IVP ONE ×2 (19:45→21:15)
[2021-09-30 20:04] LABS: HEMATOCRIT 36.6 % (41-53); HEMOGLOBIN 11.6 g/dL (13.5-17.5); MEAN CORPUSCULAR HEMOGLOBIN 22.8 pg (26.0-34.0); MEAN CORPUSCULAR HGB CONC 31.6 G/dL (31.0-37.0); MEAN CORPUSCULAR VOLUME 72 fL (80-100); PLATELET COUNT (AUTO) 366 K/uL (150-450); RED BLOOD CELL COUNT(AUTO) 5.09 MIL/uL (4.50-5.90); RED CELL DISTRIBUTION WIDTH 21.1 % (11.5-14.5)
[2021-09-30 20:13] LABS: CALCIUM, TOTAL 9.9 mg/dL (8.8-10.5); CREATININE 10.35 mg/dL (0.60-1.30); POTASSIUM 4.6 mmol/L (3.5-5.1)
[2021-09-30 20:15] LABS: INR 1.1 (0.9-1.1); PROTHROMBIN TIME 11.4 SEC (9.4-11.6)
[2021-09-30 20:19] LABS: ALBUMIN 4.5 g/dL (3.4-5.0); BILIRUBIN,TOTAL 0.7 mg/dL (0.1-1.0); TOTAL PROTEIN, SERUM 10.1 g/dL (6.4-8.2)
[2021-09-30 20:39] LABS: BAND NEUTROPHILS % (MANUAL) 0 % (0-5)
[2021-09-30 20:41] LABS: LYMPHOCYTES % (MANUAL) 8 % (22-44); MONOCYTES % (MANUAL) 5 % (2-9); SEGMENTED NEUTROPHILS % 87 % (40-70)
[2021-09-30 21:37] VITALS: BP 159/69
== END 2021-09-30 21:38 | disposition home or self-care (01) ==
LOC: EMS 18:45
DX: R11.2 Nausea with vomiting, unspecified (principal); Z79.899 Other long term (current) drug therapy; E11.22 Type 2 diabetes mellitus with diabetic chronic kidney disease; I12.0 Hypertensive chronic kidney disease with stage 5 chronic kidney disease or end stage renal disease; N18.6 End stage renal disease; Z99.2 Dependence on renal dialysis
CPT/HCPCS: 36415; 71045; 80053; 82962; 83690; 84484; 85025; 85610; 93005; 96374; 96376; 99285; J2405